=== PATIENT | male | born 1980 | race African-American/Black ===

== ENCOUNTER 2022-09-30 09:33 | Outpatient (REF) | payer BC, SELFPAY ==
[2022-09-30 10:25] LABS: Hematocrit 44.8 % (42.0-52.0); Hemoglobin 14.5 g/dl (14.0-18.0); Mean Corpuscular HGB Conc 32.4 g/dl (31.0-36.0); Mean Corpuscular Volume 80.3 fL (80.0-98.0); Mean Platelet Volume 10.4 fL (9.4-12.4); Platelet Count 350 X10*3/uL (160-400); Red Blood Count 5.58 X10*6/uL (4.60-5.80); White Blood Count 7.8 X10*3/uL (4.8-10.8)
[2022-09-30 10:52] LABS: Alanine Aminotransferase 69 U/L (0-40); Albumin Level 4.3 g/dL (3.5-5.0); Alkaline Phosphatase 100 U/L (39-117); Anion Gap 14 (12-20); Aspartate Amino Transferase 33 U/L (5-37); Bilirubin Total 1.1 mg/dL (0.0-1.0); Blood Urea Nitrogen 16 mg/dL (9-16); Calcium 9.8 mg/dL (8.4-10.2); Carbon Dioxide 26 mmol/L (22-29); Chloride 107 mmol/L (96-108); Cholesterol 272 mg/dL; Estimated Glomerular Filt Rate > 60; Glucose Fasting 108 mg/dL (60-99); HDL Cholesterol 43 mg/dL; LDL Cholesterol Calculated 170 mg/dl; Potassium 4.5 mmol/L (3.3-5.1); Sodium 142 mmol/L (135-145); Total Protein 7.2 g/dL (6.5-8.0); Triglycerides 296 mg/dL
[2022-09-30 10:56] LABS: Prostate Specific Antigen Scr 9.64 ng/mL (<0.05-4.0); TSH reflex Free T4 2.25 uIU/mL (0.32-4.0)
== END 2022-09-30 09:34 | disposition home or self-care (01) ==
LOC: HO.10HDL 09:33
PROVIDERS: Visit Provider Physician Assistant
DX: Z12.5 Encounter for screening for malignant neoplasm of prostate (principal); Z13.1 Encounter for screening for diabetes mellitus; E78.2 Mixed hyperlipidemia
CPT/HCPCS: 36415; 80053; 80061; 84153; 84443; 85027

== ENCOUNTER → 2022-11-03 13:59 | Outpatient (BNVA) | payer BC, SELFPAY | PROVIDERS: PCP Internal Medicine; Visit Provider Nurse Practitioner Family ==

== ENCOUNTER 2022-11-19 08:05 | Outpatient (REF) | payer BC, MEDICAID, SELFPAY ==
[2022-11-19 11:30] LABS: Prostate Specific Antigen 8.11 ng/mL (<0.05-4.0)
== END 2022-11-19 08:06 | disposition home or self-care (01) ==
LOC: HO.10HDL 08:05
PROVIDERS: Visit Provider Nurse Practitioner Family
DX: R97.20 Elevated prostate specific antigen [PSA] (principal); Z12.5 Encounter for screening for malignant neoplasm of prostate
CPT/HCPCS: 36415; 84153

== ENCOUNTER → 2022-11-24 13:22 | Outpatient (BNVA) | payer BC, SELFPAY | PROVIDERS: PCP Internal Medicine; Visit Provider Nurse Practitioner Family | DX: R97.20 Elevated prostate specific antigen [PSA] (principal) ==

== ENCOUNTER 2023-04-28 08:42 | Outpatient (AMB) | payer SELFPAY ==
[2023-04-28 08:36] VITALS: BP 130/78; PULSE 55; O2SAT 98; BMI 30.6
--- NOTE | 2023-04-28 08:36 | MHC.PC.OV ---
Vital Signs 04/28/23 08:36 Height 6 ft 2 in Weight 238 lb BMI 30.6 BP 130/78 Blood Pressure Location Lt brachial Position Sitting Pulse 55 Pulse Source Pulse Oximeter Pulse Oximetry (%) 98 Oxygen Delivery Method Room Air Intake Visit Reasons: Follow up on BP Allergies aspirin Allergy (Unknown, Verified 04/28/23 08:37) shortness of breath Sea food Allergy (Severe, Uncoded 04/28/23 08:37) swelling, sweating, trouble breathing Tobacco use date assessed: 09/22/22 Dental Screening Dental Screen Date: 04/28/23 Did you have a dental visit in the last 12 months?: Yes Did you have a dental problem in the last 6 months where you did not have access to dental care?: No Was dental information given to patient?: Patient has dentist HPI HPI Comments History of Present Illness Details This is a 42-year-old male with pure hypercholesterolemia, obesity, elevated PSA and elevated blood pressure without diagnosis of hypertension that comes today for follow-up for elevated blood pressure reading. Patient blood pressure at goal today below or equal to 130/80. Patient encouraged to follow low-salt diet. Patient also reports that he was previously started on atorvastatin 10 mg at bedtime for LDL of 170, states medication made him feel dizzy and very fatigued so he had discontinued the medication. Discussed starting patient on alternative statin however he would like to proceed with dietary modifications to see if he can lower his cholesterol on his own. [facility] Surgical History No pertinent past surgical history Family History Mother Diabetes Hypertension Arthritis Father Hypertension Diabetes Arthritis Pacemaker Additional heart attack (anterolateral wall) Family/Other Mental health disorder Substance use disorder Sister Tachycardia Social History Housing: House Alcohol intake: current Alcohol intake frequency: holidays/special occasions only Patient Tobacco Use Status: Former Tobacco user Quit Date: 2017 Tobacco use type: Cigarette e-Cigarette/Vaping Use: Never Used Second Hand Smoke Exposure: No service: No Current occupational status: employed Current occupation: [employer] Current occupational exposures/hazards: No Cognitive needs: No Hearing needs: No Vision needs: Yes Questionnaire PHQ-9 Over the last 2 weeks, how often have you been bothered by any of the following problems? 1. Little interest or pleasure in doing things: not at all 2. Feeling down, depressed, or hopeless: not at all 3. Trouble falling or staying asleep, or sleeping too much: not at all 4. Feeling tired or having little energy: not at all 5. Poor appetite or overeating: not at all 6. Feeling bad about yourself - or that you are a failure or have let yourself or your family down: not at all 7. Trouble concentrating on things, such as reading the newspaper or watching television: not at all 8. Moving or speaking so slowly that other people could have noticed. Or the opposite - being so fidgety or restless that you have been moving around a lot more than usual: not at all 9. Thoughts that you would be better off or of hurting yourself in some way: not at all Total score: 0 Depression Screening Interpretation: Negative Depression Screening Done: Yes 47151 - PHQ-9 Billing: Yes Source: Developed by Drs. Jaiden Brown, Doug Miller and colleagues, with an educational hugo from [employer]. Thrive Questionnaire Date Thrive assessed: 09/22/22 AUDIT C Alcohol Use Questionnaire (AUDIT-C) 1. How often do you have a drink containing alcohol?: Never Total Score: 0 KAYLAN-7 AMB Questionnaire KAYLAN-7 Date KAYLAN - 7 assessed: 09/22/22 Source: Developed by Drs. Jaiden Brown, Doug Miller and colleagues, with an educational hugo from [employer]. Review of Systems Const Denies chills, Denies fatigue, Denies fever(s) and Denies poor appetite Eyes Denies no additional complaints ENT Reports Normal hearing present Card Denies chest pain, Denies syncope, Denies rapid heart rate and Denies dyspnea Resp Denies cough and Denies dyspnea GI Denies change in stool character, Denies constipation, Denies diarrhea, Denies nausea and Denies vomiting Denies dysuria, Denies urinary frequency and Denies urinary urgency Neuro Reports Normal hearing present, Denies confusion and Denies syncope Psych Denies confusion Endo Denies fatigue Physical exam (Primary Care) Vital Signs: Last Vital Signs Pulse 55 04/28/23 08:36 BP 130/78 04/28/23 08:36 Pulse Ox 98 04/28/23 08:36 Oxygen Delivery Method Room Air 04/28/23 08:36 BMI result Body Mass Index 30.6 Tobacco/Smoking Status: Tobacco use Status Tobacco use date assessed 09/22/22 04/28/23 08:41 Patient Tobacco Use Status Former Tobacco user 04/28/23 08:41 Tobacco use type Cigarette 04/28/23 08:41 e-Cigarette/Vaping Use Never Used 04/28/23 08:41 PHQ-9: PHQ-9 Score PHQ-9: Total score 0 04/28/23 08:50 Depression Screening Interpretation: Negative Thrive Assessment: Date of Thrive Assessment Date Thrive assessed 09/22/22 04/28/23 08:41 Const General: No confusion Orientation/consciousness: No confusion HENMT Head: Yes normocephalic and Yes atraumatic Eyes Conjunctivae: conjunctivae normal Chest Chest palpation & inspection: normal inspection of the chest Resp Effort & Inspection: normal respiratory effort Auscultation: clear to auscultation bilaterally, no crackles, no rhonchi and no wheezes Cardio Rate: regular rate Rhythm: regular rhythm Heart sounds: S1 normal heart sound present and S2 normal heart sound present GI Inspection: Yes normal to inspection Neuro General: No confusion Cranial nerves: Yes Normal hearing present Extrem General: No edema Assessment and Plan Assessment & Plan (1) HLD (hyperlipidemia): Code(s): E78.5 - Hyperlipidemia, unspecified Qualifiers: Hyperlipidemia type: mixed hyperlipidemia Qualified Code(s): E78.2 - Mixed hyperlipidemia Plan: LDL 170 Avoid fried foods, chicken skin, eggs, butter,margarine, pastries and red meat. patient would like to proceed with dietary modifications prior to initiating an alternative statin. Fasting lipid panel ordered. Plan Follow-up in 3 months with PCP. Orders: Orders Comprehensive [place]. Panel Fast Today E78.5 - Hyperlipidemia, unspecified Lipid Panel Today E78.5 - Hyperlipidemia, unspecified Coding Level of Care Code Est Pt Level 3 (82347) Diagnoses Mixed hyperlipidemia E78.2 Hyperlipidemia type: mixed hyperlipidemia
== END 2023-04-28 09:01 | disposition home or self-care (01) ==
PROVIDERS: PCP Internal Medicine; Visit Provider Nurse Practitioner Family
DX: E78.2 Mixed hyperlipidemia (principal)
CPT/HCPCS: 99213

== ENCOUNTER 2023-08-08 08:18 | Outpatient (REF) | payer MEDICAID, SELFPAY ==
[2023-08-08 11:19] LABS: Alanine Aminotransferase 102 U/L (0-40); Albumin Level 4.2 g/dL (3.5-5.0); Alkaline Phosphatase 82 U/L (39-117); Anion Gap 14 (12-20); Aspartate Amino Transferase 43 U/L (5-37); Bilirubin Total 0.4 mg/dL (0.0-1.0); Blood Urea Nitrogen 16 mg/dL (9-16); Calcium 9.3 mg/dL (8.4-10.2); Carbon Dioxide 24 mmol/L (22-29); Chloride 108 mmol/L (96-108); Cholesterol 238 mg/dL (<200); Estimated Glomerular Filt Rate > 60; Glucose Fasting 115 mg/dL (60-99); HDL Cholesterol 40 mg/dL (>40); LDL Cholesterol Calculated 125 mg/dL (<100); Potassium 3.7 mmol/L (3.3-5.1); Sodium 142 mmol/L (135-145); Total Protein 7.1 g/dL (6.5-8.0); Triglycerides 366 mg/dL (<150)
[2023-08-13 01:13] LABS: Lipoprotein A 106 nmol/L (<75)
[2023-08-17 07:38] LABS: Lipoprotein Asso Phospholip A2 141 (<124)
[2023-08-26 13:03] LABS: Apolipoprotein A1 175 mg/dL (>=115)
== END 2023-08-08 08:19 | disposition home or self-care (01) ==
LOC: HO.10HDL 08:18
PROVIDERS: Visit Provider Internal Medicine
DX: E78.00 Pure hypercholesterolemia, unspecified (principal); E78.5 Hyperlipidemia, unspecified
CPT/HCPCS: 36415; 80053; 80061; 82172; 83695; 83698

== ENCOUNTER 2023-08-09 15:20 | Outpatient (AMB) | payer BC, MEDICAID, SELFPAY ==
--- NOTE | 2023-08-09 15:30 | A.OFFPC_ITS ---
Vital Signs 08/09/23 15:31 08/09/23 18:05 Height 6 ft 2 in Weight 249 lb BMI 32.0 BP 140/90 H 140/90 H Blood Pressure Location Lt brachial Lt brachial Position Sitting Sitting Intake Visit Reasons: Hyperlipidemia, hx elevated B/p Intake Note: Patient here for a follow up hyperlipidemia, elevated bp [employer] Supervisor Required: No Accompanied by: Self / Same As Patient Allergies aspirin Allergy (Unknown, Verified 08/09/23 15:43) shortness of breath Sea food Allergy (Severe, Uncoded 08/09/23 15:43) swelling, sweating, trouble breathing Medication List - Last Reconciled 08/09/23 by Roro Hernández MD No Known Home Meds Tobacco use date assessed: 08/09/23 Dental Screening Dental Screen Date: 08/09/23 Did you have a dental visit in the last 12 months?: Yes Did you have a dental problem in the last 6 months where you did not have access to dental care?: No Was dental information given to patient?: Patient has dentist HPI HPI Comments History of Present Illness Details This is a 43-year-old male with pure hypercholesterolemia, elevated blood pressure without diagnosis of hypertension, impaired glucose tolerance and transaminitis that comes today for follow-up on his labs. Cholesterol elevated but his Reading risk score is 5.3% risk of having a heart attack or stroke in the next 10 years. Blood pressure is elevated and will be recheck in 3 weeks by nurse navigator. He denies any chest pain or shortness of breath. Fasting blood glucose is also elevated but he denies any polyuria, polydipsia or unintentional weight loss. He does have elevated liver enzymes and denies any jaundice. Ultrasound of the liver was ordered. [facility] Surgical History No pertinent past surgical history Family History Mother Diabetes Hypertension Arthritis Father Hypertension Diabetes Arthritis Pacemaker Additional heart attack (anterolateral wall) Family/Other Mental health disorder Substance use disorder Sister Tachycardia Social History Housing: House Alcohol intake: current Alcohol intake frequency: holidays/special occasions only Patient Tobacco Use Status: Former Tobacco user Quit Date: 2017 Tobacco use type: Cigarette e-Cigarette/Vaping Use: Never Used Second Hand Smoke Exposure: No service: No Current occupational status: employed Current occupation: [employer] Current occupational exposures/hazards: No Cognitive needs: No Hearing needs: No Vision needs: Yes Questionnaire PHQ-9 Over the last 2 weeks, how often have you been bothered by any of the following problems? 1. Little interest or pleasure in doing things: not at all 2. Feeling down, depressed, or hopeless: not at all 3. Trouble falling or staying asleep, or sleeping too much: not at all 4. Feeling tired or having little energy: not at all 5. Poor appetite or overeating: not at all 6. Feeling bad about yourself - or that you are a failure or have let yourself or your family down: not at all 7. Trouble concentrating on things, such as reading the newspaper or watching television: not at all 8. Moving or speaking so slowly that other people could have noticed. Or the opposite - being so fidgety or restless that you have been moving around a lot more than usual: not at all 9. Thoughts that you would be better off or of hurting yourself in some way: not at all Total score: 0 Depression Screening Interpretation: Negative Depression Screening Done: Yes 55141 - PHQ-9 Billing: Yes Source: Developed by Drs. Jaiden Brown, Fely Lovell, Doug Smith and colleagues, with an educational hugo from [employer]. Thrive Questionnaire Date Thrive assessed: 08/09/23 I am a: Patient What is your living situation today?: I have a steady place to live Within the past 12 months, did the food you bought not last and you didn't have the money to get more?: Never true Within the past 12 months, did you worry whether your food would run out before you got money to buy more?: Never true Do you have trouble paying for medicines?: No Do you have trouble getting transportation to medical appointments?: No Do you have trouble paying your heating and electricity bill?: No Do you have trouble taking care of your child, family member or friend?: No Do you have trouble with day-to-day activities such as bathing, preparing meals, shopping, managing finances, etc.?: No Are you currently unemployed and looking for a job?: No Are you interested in more education?: No Please select the resources that you would like help with: None Currently or been in a relationship where the following occur: no concerns reported THRIVE Score: 0 AUDIT C Alcohol Use Questionnaire (AUDIT-C) 1. How often do you have a drink containing alcohol?: Never Total Score: 0 KAYLAN-7 AMB Questionnaire KAYLAN-7 Date KAYLAN - 7 assessed: 08/09/23 Feeling nervous, anxious, or on edge: 0 = Not at all Not being able to stop or control worryin = Not at all Worrying too much about different things: 0 = Not at all Trouble relaxin = Not at all Being so restless that it is hard to sit still: 0 = Not at all Becoming easily annoyed or irritable: 0 = Not at all Feeling afraid as if something awful might happen: 0 = Not at all Total KAYLAN-7 score (0-4 normal; 5-9 mild; 10-14 moderate; 15-21 severe): 0 Source: Developed by Drs. Jaiden Brown, Fely Lovell, Doug Smith and colleagues, with an educational hugo from [employer]. KAYLAN-7 Assessment Billing KAYLAN-7 Assessment Tool: KAYLAN-7 Assessment 20045 Review of Systems Const All systems reviewed & are unremarkable except as noted in HPI and below Eyes Reports no additional complaints, Denies change in vision and Denies other visual disturbances Card Denies chest pain at rest, Denies chest pain with activity, Denies edema, Denies irregular heart rhythm, Denies claudication, Denies dyspnea, Denies dyspnea on exertion, Denies orthopnea, Denies paroxysmal nocturnal dyspnea and Denies slow heart rate Resp Denies cough, Denies dyspnea and Denies dyspnea on exertion GI Denies abdominal pain, Denies change in bowel habits, Denies excessive flatus, Denies nausea and Denies vomiting Denies urinary hesitancy, Denies urinary incontinence and Denies urinary urgency Musc Denies abnormal gait, Denies atrophy, Denies deformity and Denies limited range of motion Skin/Breast Denies bleeding lesions, Denies changing lesions and Denies rash Neuro Denies abnormal gait, Denies behavioral changes and Denies lack of coordination Psych Denies behavioral changes Physical exam (Primary Care) Vital Signs: Last Vital Signs BP 140/90 H 08/09/23 15:31 BMI result Body Mass Index 32.0 Tobacco/Smoking Status: Tobacco use Status Tobacco use date assessed 08/09/23 08/09/23 15:38 Patient Tobacco Use Status Former Tobacco user 08/09/23 15:38 Tobacco use type Cigarette 08/09/23 15:38 e-Cigarette/Vaping Use Never Used 08/09/23 15:38 PHQ-9: PHQ-9 Score PHQ-9: Total score 0 08/09/23 15:50 Depression Screening Interpretation: Negative Thrive Assessment: Date of Thrive Assessment Date Thrive assessed 08/09/23 08/09/23 15:38 Currently or been in a relationship where the following occur: no concerns reported Eyes General: appearance normal, both eyes and all related structures Eyelids: Yes eyelids normal Conjunctivae: conjunctivae normal Neck Neck: Yes normal visual inspection and Yes supple Resp Effort & Inspection: normal respiratory effort Auscultation: clear to auscultation bilaterally Cardio Jugular venous distension: no JVD Rate: regular rate Rhythm: regular rhythm Heart sounds: S1 normal heart sound present and S2 normal heart sound present Extrem General: Yes full ROM Assessment and Plan Assessment & Plan (1) Elevated blood pressure reading without diagnosis of hypertension: Code(s): R03.0 - Elevated blood-pressure reading, without diagnosis of hypertension Plan: Recheck blood pressure with nurse navigator in 3 weeks. Advised low-salt diet. (2) Pure hypercholesterolemia: Code(s): E78.00 - Pure hypercholesterolemia, unspecified Plan: Advise low-cholesterol diet. (3) Impaired glucose tolerance: Code(s): R73.02 - Impaired glucose tolerance (oral) Plan: Repeat fasting blood glucose in 4 months. (4) Transaminitis: Code(s): R74.01 - Elevation of levels of liver transaminase levels Plan: Ultrasound of the liver ordered. Orders: Orders Lipid Panel 4 Months E78.5 - Hyperlipidemia, unspecified PSA,Total (Free>4and<10) 4 Months Z12.5 - Encounter for screening for malignant neoplasm of prostate Comprehensive [place]. Panel Fast 4 Months R73.02 - Impaired glucose tolerance (oral) US abdomen complete Today R74.01 - Elevation of levels of liver transaminase levels Referrals Open Access Screening Colonoscopy Referral Z12.11 - Encounter for screening for malignant neoplasm of colon Urology Referral R97.20 - Elevated prostate specific antigen [PSA] Coding Level of Care Code Est Pt Level 4 (16335) Diagnoses Elevated blood pressure reading without diagnosis of hypertension R03.0 Pure hypercholesterolemia E78.00 Impaired glucose tolerance R73.02 Transaminitis R74.01 Additional Codes KAYLAN-7 Assessment Billing - KAYLAN-7 Assessment Tool: KAYLAN-7 Assessment 24654 ([id number]) Time Spent (min) 24
[2023-08-09 15:31] VITALS: BP 140/90; BMI 32.0
[2023-08-09 18:05] VITALS: BP 140/90
== END 2023-08-09 15:53 | disposition home or self-care (01) ==
PROVIDERS: PCP Internal Medicine; Visit Provider Internal Medicine
DX: R03.0 Elevated blood-pressure reading, without diagnosis of hypertension (principal); E78.00 Pure hypercholesterolemia, unspecified; R73.02 Impaired glucose tolerance (oral); R74.01 Elevation of levels of liver transaminase levels
CPT/HCPCS: 99214

== ENCOUNTER 2023-09-01 09:16 | Outpatient (REF) | payer BC, MEDICAID, SELFPAY ==
--- NOTE | ~2023-09-01 | US_ITS ---
EXAMINATION: US ABDOMEN COMPLETE CLINICAL INFORMATION: Elevation of levels of liver transaminase levels. COMPARISON: None available. TECHNIQUE: Real-time imaging of the abdominal viscera. FINDINGS: PANCREAS: Normal. ABDOMINAL AORTA: The proximal, mid, and distal segments are normal in caliber. INFERIOR VENA CAVA: Visualized portions are normal. LIVER: The liver is normal in size. The liver contour is normal. Markedly increased hepatic echogenicity with areas of focal fatty sparing suggesting hepatic steatosis. No focal hepatic lesion. There is no intrahepatic biliary duct dilatation seen. GALLBLADDER: Normal. The gallbladder is physiologically distended without evidence of stones, sludge, polyps, wall thickening or pericholecystic fluid. COMMON BILE DUCT: Normal in caliber measuring 0.3 cm in diameter. RIGHT KIDNEY: Normal. No hydronephrosis. No renal calculi or focal parenchymal lesions. The kidney measures 10.8 cm in maximum dimension. LEFT KIDNEY: Normal. No hydronephrosis. No renal calculi or focal parenchymal lesions. The kidney measures 11.5 cm in maximum dimension. SPLEEN: Normal. The spleen measures 11.5 cm in maximum dimension. FREE FLUID: None. US/US abdomen complete IMPRESSION: Markedly increased hepatic echogenicity with areas of focal fatty sparing suggesting hepatic steatosis.
== END 2023-09-01 09:17 | disposition home or self-care (01) ==
LOC: HO.US 09:16
PROVIDERS: PCP Internal Medicine; Visit Provider Internal Medicine
DX: R74.01 Elevation of levels of liver transaminase levels (principal)
CPT/HCPCS: 76700

== ENCOUNTER 2023-09-27 13:01 | Outpatient (AMB) | payer BC, MEDICAID, SELFPAY ==
--- NOTE | 2023-09-27 13:02 | A.OFFVIS_ITS ---
Intake Intake Visit Reasons: Elevated PSA Intake Note: NEW Patient presents today to established treatment for Elevated PSA: Meds- None Allergies to Antibiotic- No Known Allergies Blood Thinner- None Post Void Residual: Unable to void 44 mL Corrosion Control Engineer Required: No Accompanied by: Self / Same As Patient Allergies aspirin Allergy (Unknown, Verified 09/27/23 13:30) shortness of breath Sea food Allergy (Severe, Uncoded 09/27/23 13:30) swelling, sweating, trouble breathing Medication List - Last Reconciled 09/27/23 by JAGDEEP Sky- levofloxacin 500 mg PO daily 3 days HPI HPI Comments History of Present Illness Details Dustin is a pleasant 43-year-old male patient of Dr. Jovan Hernández. He presents to the office today for a follow up. Of note, patient was seen approximately 1 year ago for an elevated PSA at which time recommendations were made for prostate biopsy. However, in discussion with the patient today he reports having lost his insurance and was unable to undergo prostate procedure. He reports he has since straightened out his insurance and would like to have prostate biopsy. In review of patient's chart PSAs are as follows. 09/23--9.6 11/23--8.1 When asked patient reports to be doing and feeling well. He denies any urinary issues or concerns at this time. He reports to be happy with his current voiding parameters. When asked he denies urinary urgency, urinary frequency, incontinence, nocturia, hematuria, dysuria, foul smelling urine, changes to urinary stream, flank pain, fever, and or chills. Unable to obtain urine for urinalysis today however, PVR 44ml's. When asked patient denies any known family history of prostate cancer. Discussed at length potential causes for elevated PSA. REMINGTON offered however deferred. He otherwise offers no other issues or concerns at this time. [facility] History No pertinent past surgical history Family History Mother Diabetes Hypertension Arthritis Father Hypertension Diabetes Arthritis Pacemaker Additional heart attack (anterolateral wall) Family/Other Mental health disorder Substance use disorder Sister Tachycardia Social History Housing: House Alcohol intake: current Alcohol intake frequency: holidays/special occasions only Patient Tobacco Use Status: Former Tobacco user Quit Date: 2017 Tobacco use type: Cigarette e-Cigarette/Vaping Use: Never Used Second Hand Smoke Exposure: No service: No Current occupational status: employed Current occupation: [employer] Current occupational exposures/hazards: No Cognitive needs: No Hearing needs: No Vision needs: Yes Review of Systems Const All systems reviewed & are unremarkable except as noted in HPI and below Reports no additional complaints Eyes Reports no additional complaints ENT Reports no additional complaints Card Reports no additional complaints and Denies rapid heart rate Resp Reports no additional complaints GI Reports no additional complaints Reports as per HPI Musc Reports no additional complaints Neuro Reports no additional complaints Psych Reports no additional complaints Endo Reports no additional complaints Kayode/Lymph Reports no additional complaints Aller/Immun Reports no additional complaints Physical Exam Const General: cooperative, healthy appearing, comfortable, no acute distress, well d eveloped, alert and awake Orientation/consciousness: patient oriented x3 Limitations: no limitations HEENT Head: Yes normal to inspection, Yes normocephalic and Yes atraumatic Ears: hearing grossly normal bilaterally Eyes General: appearance normal, both eyes and all related structures Neck Neck: Yes normal visual inspection and Yes trachea midline Chest Chest palpation & inspection: normal inspection of the chest Resp Effort & Inspection: normal respiratory effort and able to speak in complete sentences Cardio Rate: regular rate GI Inspection: Yes normal to inspection General: Yes no CVA tenderness Back/Spine/Pelvis Back: no CVA tenderness Skin General skin exam: no rashes or lesions noted Neuro General: patient oriented x3 Extrem General: Yes normal to inspection Psych Appearance: grossly normal and well kempt Mental Status: mental status grossly normal Speech and movement: Normal speech and movement present and Clear speech present Affect: normal affect Attitude: cooperative Thought process: Normal thought process present Thought content: Normal thought content present Insight: Good insight present (Psych) Judgement: Good judgement present (Psych) Assessment & Plan Assessment & Plan (1) Elevated PSA: Code(s): R97.20 - Elevated prostate specific antigen [PSA] Plan: Plan Risks and benefits regarding trans rectal ultrasound with prostate biopsy were discussed.? Options of continued surveillance, no treatment and biopsy were offered. The risks include but are not limited to, urinary tract infection, sepsis, difficulty urinating, bleeding into the rectum or bladder that requires intervention and transfusion,and failure to diagnose prostate cancer. The patient understands the options and the risks involved. They wish to proceed. Printed information was provided to ensure he remains off anticoagulation for the appropriate length of time. He may require cardiology or PCP clearance.? An antibiotic will be administered prior to, and following the procedure Plan Unable to obtain urine for urinalysis today however PVR 44 mL. Patient currently denies any bothersome urinary issues or concerns. REMINGTON offered however deferred. Discussed at length potential causes for elevated PSA. Will obtain redraw of PSA Discussed antibiotic day before, day of, and day after procedure; prescription provided. Will schedule for prostate biopsy as discussed Follow-up status post doctor's orders; or sooner with any issues, concerns, and or questions. Orders: Orders PSA,Total (Free>4and<10) Today R97.20 - Elevated prostate specific antigen [PSA] Medications: New levofloxacin take 1 tablet day before procedure, 1 tablet day of procedure and 1 tablet day after procedure 500 mg PO daily 3 days 3 tabs 0RF Patient Instructions: The patient had an opportunity to ask questions regarding the treatment plan. All questions were answered. Physical exam, labs, and imaging were discussed and reviewed in detail. As well as risks, benefits, and discussion of treatment choices. No major barriers to understanding were identified. The patient expressed understanding and agreement with the above treatment plan. The patient was made aware they should contact our office by phone for worsening of their current condition, the appearance of new symptoms, or with any questions or concerns. Compliance is encouraged with any medications and follow up testing that is ordered. It is a privilege to be allowed the opportunity to participate in? your urological care.? Again, if you have any questions or concerns If you have any questions or concerns please do not hesitate to contact me. The office is [phone]. This note is constructed using voice recognition software. While every effort has been made to ensure accuracy coach cleaner errors may have been included. Yours sincerely, Codi Méndez, JEWEL BEARING BROACHER-BC Coding Level of Care Code Est Pt Level 4 (66799) Diagnoses Elevated PSA R97.20
== END 2023-09-27 13:31 | disposition home or self-care (01) ==
PROVIDERS: PCP Internal Medicine; Visit Provider Nurse Practitioner Family
DX: R97.20 Elevated prostate specific antigen [PSA] (principal)
CPT/HCPCS: 99214

== ENCOUNTER → 2023-09-27 13:01 | Outpatient (BNVA) | payer BC, MEDICAID, SELFPAY | PROVIDERS: PCP Internal Medicine; Visit Provider Nurse Practitioner Family ==

== ENCOUNTER 2023-10-21 07:33 | Outpatient (REF) | payer BC, MEDICAID, SELFPAY ==
[2023-10-21 11:22] LABS: PSA,Total (Free>4and<10) 7.35 ng/mL (0.00-4.00)
[2023-10-24 10:54] LABS: Free Prostate Spec Ag 0.3 ng/mL; Percent Free Prostate Spec Ag 5 % (calc) (>25); Prostate Specific Ag Total 6.5 ng/mL (< OR = 4.0)
== END 2023-10-21 07:34 | disposition home or self-care (01) ==
LOC: HO.10HDL 07:33
PROVIDERS: Visit Provider Nurse Practitioner Family
DX: Z12.5 Encounter for screening for malignant neoplasm of prostate (principal); R97.20 Elevated prostate specific antigen [PSA]
CPT/HCPCS: 36415; 84153; 84154

== ENCOUNTER 2023-10-25 11:15 | Day surgery (SDC) | payer BC, MEDICAID, SELFPAY ==
--- NOTE | 2023-10-24 10:45 | HO.ANESPROP2 ---
HPI - Anesthesia Eval Consult details Narrative: 43yo M for Prostate Needle Biopsy PMFSH Active Problems Active Problems: All Active Problems Impaired glucose tolerance (Acute) Transaminitis (Acute) Elevated blood pressure reading without diagnosis of hypertension (Acute) Pure hypercholesterolemia (Acute) Prostatitis (Acute) Urinary frequency (Acute) Elevated PSA (Acute) Obese (Acute) Colon cancer screening (Acute) HLD (hyperlipidemia) (Acute) Screening for hypothyroidism (Acute) Screening for diabetes mellitus (DM) (Acute) Annual physical exam (Acute) Past Medical History Medical History (Updated 10/24/23 @ 10:45 by Vanda Stern NP) HLD (hyperlipidemia) Family History Family History Mother Diabetes Hypertension Arthritis Father Hypertension Diabetes Arthritis Pacemaker Additional heart attack (anterolateral wall) Family/Other Mental health disorder Substance use disorder Sister Tachycardia Surgical History Surgical History No pertinent past surgical history Social History Social History Housing: House Alcohol intake: current Alcohol intake frequency: holidays/special occasions only Patient Tobacco Use Status: Former Tobacco user Quit Date: 2017 Tobacco use type: Cigarette e-Cigarette/Vaping Use: Never Used Second Hand Smoke Exposure: No service: No Current occupational status: employed Current occupation: [employer] Current occupational exposures/hazards: No Cognitive needs: No Hearing needs: No Vision needs: Yes Meds Allergies Allergy/AdvReac Type Severity Reaction Status Date / Time aspirin Allergy Unknown shortness Verified 09/27/23 13:30 of breath Sea food Allergy Severe swelling, Uncoded 09/27/23 13:30 sweating, trouble breathing Assessment and Plan Assessment Anesthesia Assessment: Chart Reviewed
--- NOTE | 2023-10-25 14:58 | MHC.SHP ---
Pre-Procedural Eval Section A - 24 Hr Update-Section A only Date of Service: 10/25/23 The patient is an INPATIENT: No The patient has been examined within 24 hours of the surgical procedure. The History & Physical has been completed within 30 days and I have reviewed it.: Yes Section B - Complete if H&P > 30 days Chief Complaint: Elevated prostate specific antigen [PSA] Allergies: Allergies Allergy/AdvReac Type Severity Reaction Status Date / Time aspirin Allergy Severe Anaphylaxis Verified 10/25/23 14:03 Sea food Allergy Severe swelling, Uncoded 09/27/23 13:30 sweating, trouble breathing Plan Diagnosis/Plan: Unchanged I have reviewed the history and physical and performed a pertinent physical examination on my patient. No changes have occurred unless specified. Transrectal ultrasound guided prostate biopsy. Time Spent With Patient Time: Total time managing care of this patient today ____ minutes.
[2023-10-25 15:09] VITALS: BMI 30.8
[2023-10-25] MEDS: Sulfamethox/Trimeth 800/160 TABLET 1 TAB PO (15:12)
--- NOTE | 2023-10-25 17:00 | W.PM.OPN ---
Operative Note Operative Note Date of Service: 10/25/23 Narrative: PreOperative Diagnosis:? ? Elevated PSA Post Operative Diagnosis:??Elevated PSA Procedure:?1. Transrectal ultrasound guided biopsy of the prostate 12 core 2. Transrectal ultrasound measurement of prostate 3. Transrectal ultrasound guided pudendal nerve block Surgeon:?Dr Triston Evangelista Anesthesia:? Local, 1 % Lidocaine Indications for procedure: Elevated PSA Procedure: Preoperative antibiotics confirmed. After informed consent was verified the patient was placed on the procedure table in left lateral position. Patient identity confirmed. Safety pause time-out performed. Digital rectal exam performed to dilate rectal sphincter, iodine mixed with lubricant jelly 30 cc placed per rectum. Ultrasound probe was placed per rectum. The prostate was visualized. The prostate was measured width 5.37 cm, height 2.16 cm, length 4.14 cm with a volume of 25.2 mL. An ultrasound guided pudendal nerve block was performed using 13 cc of 1% lidocaine. A 12 core biopsy was performed from the left base, left mid, left apex and right base, mid, apex 2 biopsies from each section. The ultrasound probe was removed and digital palpation of the prostate for 1-2 minutes for hemostasis was performed. The patient tolerated the procedure well. Complications: None
[2023-10-25 17:05] VITALS: BP 159/87; PULSE 56; RESP 18; TEMP 37.2; O2SAT 99
== END 2023-10-25 17:14 | disposition home or self-care (01) ==
PROVIDERS: PCP Internal Medicine; Visit Provider Urology
PROC: (CPT 55700; principal; 2023-10-25 14:50)
DX: R97.20 Elevated prostate specific antigen [PSA] (principal); Z79.899 Other long term (current) drug therapy; Z88.8 Allergy status to other drugs, medicaments and biological substances; Z87.891 Personal history of nicotine dependence
CPT/HCPCS: 55700; 76942; 88305

== ENCOUNTER → 2023-10-25 11:15 | Outpatient (BNV) | payer BC, MEDICAID, SELFPAY | PROVIDERS: PCP Internal Medicine; Visit Provider Urology | DX: R97.20 Elevated prostate specific antigen [PSA] (principal) | CPT/HCPCS: 55700; 76942 ==

== ENCOUNTER 2023-11-21 08:19 | Outpatient (AMB) | payer BC, MEDICAID, SELFPAY ==
--- NOTE | 2023-11-21 08:36 | A.OFFVIS_ITS ---
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 He was initially evaluated by the nurse practitioner on 09/27/2023. PSA 10/21/2023--7.35 ng/mL. He is status post prostate biopsy. I reviewed pathology results benign prostate tissue. The patient denies obstructive urinary symptoms. He states that since the prostate biopsy has had hesitancy at the end of the stream if this persists and want him to give us. Discussed that it is important to continue to monitor with PSA screening. Review of chart: 09/27/2023-- Dustin is a pleasant 43-year-old male patient of Dr. Jovan Hernández. He presents to the office today for a follow up. Of note, patient was seen approximately 1 year ago for an elevated PSA at which time recommendations were made for prostate biopsy. However, in discussion with the patient today he reports having lost his insurance and was unable to undergo prostate procedure. He reports he has since straightened out his insurance and would like to have prostate biopsy. When asked patient reports to be doing and feeling well. He denies any urinary issues or concerns at this time. He reports to be happy with his current voiding parameters. When asked he denies urinary urgency, urinary frequency, incontinence, nocturia, hematuria, dysuria, foul smelling urine, changes to urinary stream, flank pain, fever, and or chills. Unable to obtain u rine for urinalysis today however, PVR 44ml's. When asked patient denies any known family history of prostate cancer. Discussed at length potential causes for elevated PSA. REMINGTON offered however deferred. He otherwise offers no other issues or concerns at this time. In review of patient's chart PSAs are as follows. 09/23--9.6 11/23--8.1 10/21/2023--7.35 PFSH Medical History HLD (hyperlipidemia) Surgical History No pertinent past surgical history Family History Mother Diabetes Hypertension Arthritis Father Hypertension Diabetes Arthritis Pacemaker Additional heart attack (anterolateral wall) Family/Other Mental health disorder Substance use disorder Sister Tachycardia Social History Housing: House Alcohol intake: current Alcohol intake frequency: holidays/special occasions only Patient Tobacco Use Status: Former Tobacco user Quit Date: 2017 Tobacco use type: Cigarette e-Cigarette/Vaping Use: Never Used Second Hand Smoke Exposure: No service: No Current occupational status: employed Current occupation: [employer] Current occupational exposures/hazards: No Cognitive needs: No Hearing needs: No Vision needs: Yes Review of Systems Const All systems reviewed & are unremarkable except as noted in HPI and below Reports no additional complaints Eyes Reports no additional complaints ENT Reports no additional complaints Card Reports no additional complaints Resp Reports no additional complaints GI Reports no additional complaints Reports as per HPI Musc Reports no additional complaints Skin/Breast Reports system reviewed and no additional complaints, except as documented Neuro Reports no additional complaints Psych Reports no additional complaints Endo Reports no additional complaints Kayode/Lymph Reports no additional complaints Aller/Immun Reports no additional complaints Results Reviewed Results Reviewed: Collected: 10/25/23 Location: [facility] Received: 10/26/23 Diagnosis Prostate, needle core biopsies: A. Left base lateral: Benign prostatic tissue. B. Left base medial: Benign prostatic tissue. C. Left mid lateral: Benign prostatic tissue. D. Left mid medial: Benign prostatic tissue. E. Left apex lateral: Benign prostatic tissue. F. Left apex medial: Benign prostatic tissue. G. Right base lateral: Benign prostatic tissue. H. Right base medial: Benign prostatic tissue. I. Right mid lateral: Benign prostatic tissue. J. Right mid medial: Benign prostatic tissue. K. Right apex lateral: Benign prostatic tissue. L. Right apex medial: Benign prostatic tissue. Clinical History Elevated prostate specific antigen (PSA) Assessment & Plan Assessment & Plan (1) Elevated PSA: Code(s): R97.20 - Elevated prostate specific antigen [PSA] Category: Medical (2) Enlarged prostate: Code(s): N40.0 - Benign prostatic hyperplasia without lower urinary tract symptoms Category: Medical Plan Monitor PSA. Follow-up in 9 moist PSA prior. Orders: Orders PSA,Total (Free>4and<10) Today R97.20 - Elevated prostate specific antigen [PSA] Patient Instructions: The patient had an opportunity to ask questions regarding treatment plan. The patient expressed understanding and agreement with the above treatment plan. The patient is aware they should contact our office by phone for worsening of their current condition or the appearance of new symptoms. Compliance is encouraged with any medications and followup testing that is ordered. It is a privilege to be allowed the opportunity to participate in the urologic care of your patient. If you have any questions or concerns regarding treatment for the above conditions please do not hesitate to contact me. The office telephone contact is [phone]. This note is constructed in part using voice recognition software. While every effort has been made to ensure accuracy production welding supervisor errors may have been included. Yours sincerely, Triston Evangelista MD Coding Level of Care Code Est Pt Level 4 (30851) Diagnoses Elevated PSA R97.20 Enlarged prostate N40.0
== END 2023-11-21 09:37 | disposition home or self-care (01) ==
PROVIDERS: PCP Internal Medicine; Visit Provider Urology
DX: R97.20 Elevated prostate specific antigen [PSA] (principal); N40.0 Benign prostatic hyperplasia without lower urinary tract symptoms
CPT/HCPCS: 99214

== ENCOUNTER → 2023-11-21 08:19 | Outpatient (BNVA) | payer BC, MEDICAID, SELFPAY | PROVIDERS: PCP Internal Medicine; Visit Provider Urology ==

== ENCOUNTER 2023-12-14 08:14 | Outpatient (REF) | payer BC, SELFPAY ==
[2023-12-14 10:56] LABS: Alanine Aminotransferase 55 U/L (0-40); Albumin Level 4.3 g/dL (3.5-5.0); Alkaline Phosphatase 85 U/L (39-117); Anion Gap 13 (12-20); Aspartate Amino Transferase 25 U/L (5-37); Bilirubin Total 0.8 mg/dL (0.0-1.0); Blood Urea Nitrogen 15 mg/dL (9-16); Calcium 9.6 mg/dL (8.4-10.2); Carbon Dioxide 25 mmol/L (22-29); Chloride 107 mmol/L (96-108); Cholesterol 218 mg/dL (<200); Estimated Glomerular Filt Rate > 60; Glucose Fasting 103 mg/dL (60-99); HDL Cholesterol 41 mg/dL (>40); LDL Cholesterol Calculated 133 mg/dL (<100); Potassium 3.9 mmol/L (3.3-5.1); Sodium 141 mmol/L (135-145); Total Protein 7.2 g/dL (6.5-8.0); Triglycerides 222 mg/dL (<150)
[2023-12-14 11:22] LABS: PSA,Total (Free>4and<10) 9.11 ng/mL (0.00-4.00)
[2023-12-15 12:33] LABS: Free Prostate Spec Ag 0.5 ng/mL; Percent Free Prostate Spec Ag 5 % (calc) (>25); Prostate Specific Ag Total 9.6 ng/mL (< OR = 4.0)
== END 2023-12-14 08:15 | disposition home or self-care (01) ==
LOC: HO.10HDL 08:14
PROVIDERS: Visit Provider Internal Medicine
DX: R73.02 Impaired glucose tolerance (oral) (principal); E78.5 Hyperlipidemia, unspecified; Z12.5 Encounter for screening for malignant neoplasm of prostate
CPT/HCPCS: 36415; 80053; 80061; 84153; 84154

== ENCOUNTER 2023-12-15 13:33 | Outpatient (AMB) | payer BC, SELFPAY ==
--- NOTE | 2023-12-15 13:36 | A.OFFPC_ITS ---
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 Has elevated PSA followed by Urology. Will have colonoscopy soon. No chest pain or shortness on breath. Complains of bilateral hand pain and weakness that has been present for few months. Will order x-ray and start occupational therapy. Labs were discussed and has elevated cholesterol and dietary changes were advised. [facility] Medical History (Updated 12/15/23 @ 14:13 by Roro Hernández MD) HLD (hyperlipidemia) Surgical History No pertinent past surgical history Family History Mother Diabetes Hypertension Arthritis Father Hypertension Diabetes Arthritis Pacemaker Additional heart attack (anterolateral wall) Family/Other Mental health disorder Substance use disorder Sister Tachycardia Social History (Updated 12/15/23 @ 14:07 by Roro Hernández MD) Housing: House Alcohol intake: former Patient Tobacco Use Status: Former Tobacco user Tobacco use type: Cigarette e-Cigarette/Vaping Use: Never Used Second Hand Smoke Exposure: No service: No Current occupational status: employed Current occupation: [employer] Current occupational exposures/hazards: No Cognitive needs: No Hearing needs: No Vision needs: Yes Questionnaire Thrive Questionnaire Date Thrive assessed: 08/09/23 KAYLAN-7 AMB Questionnaire KAYLAN-7 Date KAYLAN - 7 assessed: 08/09/23 Source: Developed by Drs. Jaiden Brown, Fely Lovell, Doug Smith and colleagues, with an educational hugo from [email or web address]. Review of Systems Const All systems reviewed & are unremarkable except as noted in HPI and below Card Denies chest pain at rest, Denies chest pain with activity, Denies edema, Denies irregular heart rhythm, Denies claudication, Denies dyspnea, Denies dyspnea on exertion, Denies orthopnea, Denies paroxysmal nocturnal dyspnea and Denies slow heart rate Resp Denies cough, Denies dyspnea and Denies dyspnea on exertion GI Denies abdominal pain, Denies change in bowel habits, Denies excessive flatus, Denies nausea and Denies vomiting Denies urinary hesitancy, Denies urinary incontinence and Denies urinary urgency Musc Denies atrophy, Denies deformity, Reports arthralgias, Denies limited range of motion and Reports muscle weakness Physical exam (Primary Care) Vital Signs: Last Vital Signs BP 130/80 12/15/23 13:37 BMI result Body Mass Index 31.1 Tobacco/Smoking Status: Tobacco use Status Tobacco use date assessed 08/09/23 12/15/23 13:40 Patient Tobacco Use Status Former Tobacco user 12/15/23 13:40 Tobacco use type Cigarette 12/15/23 13:40 e-Cigarette/Vaping Use Never Used 12/15/23 13:40 Thrive Assessment: Date of Thrive Assessment Date Thrive assessed 08/09/23 12/15/23 13:40 Const Orientation/consciousness: patient oriented x3 HENMT Head: Yes normal to inspection, Yes normocephalic and Yes atraumatic Ears: external ears normal Eyes General: appearance normal, both eyes and all related structures Eyelids: Yes eyelids normal Conjunctivae: conjunctivae normal Neck Neck: Yes normal visual inspection and Yes supple Resp Effort & Inspection: normal respiratory effort Auscultation: clear to auscultation bilaterally Cardio Jugular venous distension: no JVD Rate: regular rate Rhythm: regular rhythm Heart sounds: S1 normal heart sound present and S2 normal heart sound present GI Inspection: Yes normal to inspection Palpation (GI): Soft to palpation and nontender Auscultation: normal bowel sounds Skin General skin exam: no rashes or lesions noted Neuro General: patient oriented x3 and no focal motor deficits Extrem General: Yes full ROM Psych Appearance: grossly normal Assessment and Plan Assessment & Plan (1) Annual physical exam: Code(s): Z00.00 - Encounter for general adult medical examination without abnormal findings Plan: Repeat in a year. (2) Right hand pain: Code(s): M79.641 - Pain in right hand Plan: X-ray ordered. Start occupational therapy. (3) Left hand pain: Code(s): M79.642 - Pain in left hand Plan: X-ray ordered. Start occupational therapy. Orders: Orders OT Evaluation and Treatment Today M79.641 - Pain in right hand, M79.642 - Pain in left hand XR hand LT 2V Today M79.642 - Pain in left hand XR hand RT 2V Today M79.641 - Pain in right hand Coding Level of Care Code Est Pt Level 3 (65618) Est Pt Prev Care 40-64y(81065) Diagnoses Annual physical exam Z00.00 Right hand pain M79.641 Left hand pain M79.642 Time Spent (min) 35
[2023-12-15 13:37] VITALS: BP 130/80; BMI 31.1
== END 2023-12-15 14:15 | disposition home or self-care (01) ==
PROVIDERS: PCP Internal Medicine; Visit Provider Internal Medicine
DX: Z00.00 Encounter for general adult medical examination without abnormal findings (principal); M79.641 Pain in right hand; M79.642 Pain in left hand
CPT/HCPCS: 99213; 99396

== ENCOUNTER 2024-01-31 08:00 | Outpatient (RCR) | payer BC, SELFPAY ==
--- NOTE | 2024-01-24 10:24 | MHC.OT.OEV ---
[address] [phone] F: [phone] Occupational Therapy Evaluation Patient Name: Dustin Leonard Diagnosis: (B)hand pain Date of Onset: 12/15/23 Date of Surgery: Attending Provider: Roro Hernández Prescribed Treatment: Follow Up Appointment: History of Current Condition: Patient is a 44 year old male with reports (B)hand pain. 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 He lives with his in a 2 level home and has 2 adult children and 1 grandson. He report the pain is worse in the morning and they feel stiff. He states the (L)hand is affected more then his (R) and is unable to make a functional fist. 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 part time min (A) ADLs Patient reports difficulty with opening jars, typing on work computer Sleep: Sleeping through the night Driving: Difficulty with driving Vision: Balance: Pain Assessment Pain Score: 6 Pain Scale Used: Pain Location and Description: (B)hands (L)3rd digit is the most painful Aggravating Factors: Alleviating Factors: Tylenol Skin and Soft Tissue Assessment Skin and Soft Tissue: Swelling Comments: In the fingers Nerve assessment Ulnar Nerve: Median Nerve: Radial Nerve: Comments: WFL Sensory Assessment Temperature: Light Touch: Proprioception: Vibration: Comments: Edema Assessment Upper Extremity: Lower Extremity: Comments: Dexterity Assessment Dexterity: B/L Impaired Comments: Functional Dexterity Test (R)35.5 seconds (L) 30 seconds Special Tests Comments: AROM(PROM) Strength Cervical Cervical Flexion: Cervical Extension: Cervical Lateral Flexion: Cervical Rotation: Comments: WFL Shoulder Flexion: Extension: Abduction: Internal Rotation: External Rotation: Comments: Flexion: Extension: Abduction: Internal Rotation: External Rotation: Comments: WFL Elbow Flexion: Extension: Pronation: Supination: Comments: Flexion: Extension: Pronation: Supination: Comments: WFL Wrist Flexion: Extension: Ulnar Deviation: Radial Deviation: Comments: Flexion: Extension: Ulnar Deviation: Radial Deviation: Comments: WFL Thumb Thumb CMC Flexion: Thumb MCP Flexion: Thumb IP Flexion: Radial Abduction: Palmar Abduction: Heavener (Kapandji 0-10): Comments: Able to perform opposition. Digits Index MCP: PIP: 85(L) DIP: 60 Long MCP: PIP: 60(L) DIP: 45 Ring MCP: PIP: 55(L) DIP: 45 Small MCP: PIP: 90(L) DIP: 35 Comments: Difficulty with making a composite fist (L) (R)WFL Gross Grasp: 87.5lbs. (R), 10.5lbs. (L) Lateral Pinch: Two-Point Pinch: Three-Jaw Raul: Comments: Patient Education Primary Language: [employer] Salesperson Required: No Current Knowledge: Teaching Method: Education Needs Identified on Evaluation: How did patient/family demonstrate learning? Barriers to Learning: Readiness for Learning: Who was educated? 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 He reports pain and stiffs in (B)hands when he wakes in the morning. He stated he noticed that if he moves them they feel better. Quick DASH= 59.1 indicating patient's perceived impairment during self care tasks. He state he has difficulty opening jars and using his work computer. Based on initial evaluation patient presents with impaired strength, impaired ROM, impaired coordination, pain and impaired performance during self care tasks. Due to the documented impairments it is recommended that patient receive skilled Occupational therapy in order to achieve his PLOF of (I) during self care tasks. Thank you for your referral STG Duration: 2 weeks Short Term Goals: Patient will report 4/10 pain in (B)hands during self care tasks Patient will be (I) with edema management techniques Patient will be (I) utilizing compression glove PRN Patient will increase (L)mold stripper strength to 20lbs. LTG Duration: 4 weeks Alf Goals: Patient will report 0/10 pain in (B) hands during self care tasks Patient will be (I) with HEP Frequency and Duration: The patient will be seen 2x a week for 4 weeks Treatment Plan: Therapeutic Exercise Therapeutic Activity Home Exercise Program Patient Education Edema Control ADL Training Paraffin Fluidotherapy MHP Cold Packs Joint Mobilization Soft Tissue Mobilization Kinesiotaping SKilled OT eval and treat 2x a week for 4 weeks Electronically Signed By: MARIAH Patel/ELA Rome Reviewed/agree with student documentation: Therapist: Please sign and return to therapist, Thank you for your referral.
--- NOTE | 2024-04-26 09:23 | MHC.OT.IDC ---
[address] [phone] F: [phone] Occupational Therapy Inpatient Daily Note Patient Name: Dustin Leonard Discharge Date: Assessment: Discharge Reason: Discharge Recommendations: Comments: Electronically Signed By: MARIAH Patel/Wild, CLT Reviewed/agree with student documentation: Therapist:
== END 2024-04-26 09:25 | disposition home or self-care (01) ==
LOC: HO.OT 08:00
PROVIDERS: PCP Internal Medicine; Visit Provider Internal Medicine
DX: M79.641 Pain in right hand (principal); M79.642 Pain in left hand
CPT/HCPCS: 97110; 97140; 97165

== ENCOUNTER 2024-04-03 09:44 | Day surgery (SDC) | payer BC, SELFPAY ==
--- NOTE | 2024-04-02 13:36 | HO.ANESPROP2 ---
Documented by User: Vanda Stern NP 04/02/24 13:36 HPI - Anesthesia Eval Consult details Narrative: 44yo M for Colonoscopy PMFSH Active Problems Active Problems: All Active Problems Right hand pain (Acute) Left hand pain (Acute) Enlarged prostate (Acute) Impaired glucose tolerance (Acute) Transaminitis (Acute) Elevated blood pressure reading without diagnosis of hypertension (Acute) Pure hypercholesterolemia (Acute) Prostatitis (Acute) Urinary frequency (Acute) Elevated PSA (Acute) Obese (Acute) Colon cancer screening (Acute) Screening for hypothyroidism (Acute) Screening for diabetes mellitus (DM) (Acute) Annual physical exam (Acute) Past Medical History Medical History HLD (hyperlipidemia) Family History Family History Mother Diabetes Hypertension Arthritis Father Hypertension Diabetes Arthritis Pacemaker Additional heart attack (anterolateral wall) Family/Other Mental health disorder Substance use disorder Sister Tachycardia Surgical History Surgical History No pertinent past surgical history Social History Social History Housing: House Alcohol intake: former Patient Tobacco Use Status: Former Tobacco user Tobacco use type: Cigarette e-Cigarette/Vaping Use: Never Used Second Hand Smoke Exposure: No Use of substances other than those prescribed or required for medical reasons: No Are you DNR?: No Advance Directives: No Advance Directives Information Provided: Yes service: No Current occupational status: employed Current occupation: [employer] Current occupational exposures/hazards: No Cognitive needs: No Hearing needs: No Vision needs: Yes Meds Allergies Allergy/AdvReac Type Severity Reaction Status Date / Time aspirin Allergy Severe Anaphylaxis Verified 04/03/24 13:42 Sea food Allergy Severe swelling, Uncoded 04/03/24 13:42 sweating, trouble breathing Home Medications ?Medication ?Instructions ?Recorded ?Confirmed ?Last Taken ?Type No Known Home Meds 04/03/24 04/03/24 Unknown History Assessment and Plan Assessment Anesthesia Assessment: Chart Reviewed Documented by User: Mayra Reno MD 04/03/24 13:57 PMF Past Medical History Medical History HLD (hyperlipidemia) Family History Family History Mother Diabetes Hypertension Arthritis Father Hypertension Diabetes Arthritis Pacemaker Additional heart attack (anterolateral wall) Family/Other Mental health disorder Substance use disorder Sister Tachycardia Family history of problems with anesthesia: No Surgical History Surgical History No pertinent past surgical history History of Problems with Anesthesia: No Social History Social History Housing: House Alcohol intake: former Patient Tobacco Use Status: Former Tobacco user Tobacco use type: Cigarette e-Cigarette/Vaping Use: Never Used Second Hand Smoke Exposure: No Use of substances other than those prescribed or required for medical reasons: No Are you DNR?: No Advance Directives: No Advance Directives Information Provided: Yes service: No Current occupational status: employed Current occupation: [employer] Current occupational exposures/hazards: No Cognitive needs: No Hearing needs: No Vision needs: Yes Meds Allergies Allergy/AdvReac Type Severity Reaction Status Date / Time aspirin Allergy Severe Anaphylaxis Verified 04/03/24 13:42 Sea food Allergy Severe swelling, Uncoded 04/03/24 13:42 sweating, trouble breathing Home Medications ?Medication ?Instructions ?Recorded ?Confirmed ?Last Taken ?Type No Known Home Meds 04/03/24 04/03/24 Unknown History Exam Airway Mallampati Class: II TM Dist: >3cm Neck ROM: Full Heart: rrr Lungs: cta Assessment and Plan Assessment Anesthesia Assessment: Anesthesia Plan Discussed Final Anesthetic Review Family History of Problems with Anesthesia: No History of Problems with Anesthesia: No NPO: Yes ASA Class: II Final Preanesthetic Review: No Changes in Pt Med Stat, Meds/Allgs Chart Reviewed, Consent Obtained/Reviewed and Anes Risks/Benef Reviewed Patient Risk: Intermediate Procedure Risk: Low Anesthetic Plan Anesthetic Plan: MAC: Disposition: Standard PACU
[2024-04-03 13:43] VITALS: BMI 30.6
[2024-04-03 13:44] VITALS: BP 141/93; PULSE 53; RESP 18; TEMP 36.2; O2SAT 99
[2024-04-03] MEDS: Lactated Ringers 1,000 ML 100 ML IVCONT (14:10)
--- NOTE | 2024-04-03 14:55 | MHC.SHP ---
Pre-Procedural Eval Section A - 24 Hr Update-Section A only Date of Service: 04/03/24 Section B - Complete if H&P > 30 days Chief Complaint: screening Relevant Family History (Specify if Yes): No Relevant Social History: None Present Medications: see Short Stay Collaborative assessment Medical History: Significant History (HLD (hyperlipidemia)) History of Previous Operations: No relevant previous surgery Allergies: Allergies Allergy/AdvReac Type Severity Reaction Status Date / Time aspirin Allergy Severe Anaphylaxis Verified 04/03/24 13:42 Sea food Allergy Severe swelling, Uncoded 04/03/24 13:42 sweating, trouble breathing Review of Systems Sugical H&P ROS: Negative: Constitution, Cardiovascular, Respiratory, Neurological, Psychiatric, Hem-Onc, Allergic/Immunologic, Gastrointestinal, Genitourinary, Musculoskeletal, Integumentary, Endocrine and Eyes/Ears/Nose/Throat Exam Surgical H&P Exam: Normal: HEENT, Normal: Heart, Normal: Lungs, Normal: Extremities, Normal: Abdomen, Normal: Skin and Normal: Neurological Plan Diagnosis/Plan: Unchanged I have reviewed the history and physical and performed a pertinent physical examination on my patient. No changes have occurred unless specified. Time Spent With Patient Time: Total time managing care of this patient today ____ minutes.
--- NOTE | 2024-04-03 14:57 | P.OPN-COLO_ITS ---
Colonoscopy Operative Note Operative Note Date of Service: 04/03/24 Narrative: Operative Information Procedure Description: Colonoscopy Indication: screening Anesthesia: MAC COLONOSCOPY Instrument: Olympus variable stiffness pediatric scope 190L Colonoscopy Monitoring: Vital signs and clinical assessment, continuous EKG monitoring, Pulse oximetry, Carbon Dioxide monitoring and blood pressure monitoring were done throughout the procedure. Colon withdrawal time was 11 minutes. Procedure: The patient was placed in the left lateral decubitis position and pre-procedure medications were administered. After a digital rectal examination of the ano-rectum, the video colonoscope was inserted into the rectum and advanced through the colon to the cecum/TI. The colonoscope was slowly withdrawn in a retrograde panoramic fashion and the colon mucosa was carefully examined including a retroflexed view of the rectum. Findings and interventions are described below. Procedure Difficulty: easy Findings: Terminal Ileum-normal Cecum:normal Ascending Colon: 10 mm sessile polyp removed with cold snare Transverse Colon -normal Descending Colon:normal Sigmoid Colon: mild diverticulosis Rectum: Retroflexion with small to moderate internal hemorrhoids seen, grade I, mild inflammed Anorectum - normal Intervention: cold snare Colon preparation: [place] Bowel Preparation Scale Right colon; 2 Transverse colon: 2 Left colon; 1-2 (0 = Unprepared colon segment with mucosa not seen due to solid stool that cannot be cleared. 1 = Portion of mucosa of the colon segment seen, but other areas of the colon segment not well seen due to staining, residual stool and/or opaque liquid. 2 = Minor amount of residual staining, small fragments of stool and/or opaque liquid, but mucosa of colon segment seen well. 3 = Entire mucosa of colon segment seen well with no residual staining, small fragments of stool or opaque liquid) Impression and Post Procedure Diagnosis: diverticulosis colon polyp internal hemorrhoids Plan: High fiber diet leaflet Avoid straining at stool, epsom salts and sitz bath, anusol supps or cream Repeat Colonoscopy in 5 years due to areas of fair prep left side or earlier if clinically indicated Above findings were reviewed with the patient and relevant handouts were provided if indicated.
[2024-04-03 15:30] VITALS: BP 109/72; PULSE 61; RESP 16; TEMP 36.1; O2SAT 99
[2024-04-03 15:45] VITALS: BP 134/88; PULSE 45; RESP 18; TEMP 36.1; O2SAT 99
== END 2024-04-03 15:51 | disposition home or self-care (01) ==
PROVIDERS: PCP Internal Medicine; Visit Provider Internal Medicine Gastroenterology
PROC: 0DJD8ZZ Inspection of Lower Intestinal Tract, Via Natural or Artificial Opening Endoscopic (ICD-10-PCS; CPT 45378; principal; 2024-04-03 12:40)
DX: Z12.11 Encounter for screening for malignant neoplasm of colon (principal); D12.2 Benign neoplasm of ascending colon; K57.30 Diverticulosis of large intestine without perforation or abscess without bleeding; K64.0 First degree hemorrhoids; E78.00 Pure hypercholesterolemia, unspecified; Z87.891 Personal history of nicotine dependence
CPT/HCPCS: 45385; 88305; J2704

== ENCOUNTER → 2024-04-03 09:44 | Outpatient (BNV) | payer BC, SELFPAY | PROVIDERS: PCP Internal Medicine; Visit Provider Internal Medicine Gastroenterology | DX: Z12.11 Encounter for screening for malignant neoplasm of colon (principal); K63.5 Polyp of colon; K64.0 First degree hemorrhoids | CPT/HCPCS: 45385 ==

== ENCOUNTER 2024-08-17 09:28 | Outpatient (REF) | payer BC, SELFPAY ==
[2024-08-17 11:39] LABS: PSA,Total (Free>4and<10) 9.31 ng/mL (0.00-4.00)
[2024-08-20 12:14] LABS: Free Prostate Spec Ag 0.6 ng/mL; Percent Free Prostate Spec Ag 6 % (calc) (>25); Prostate Specific Ag Total 9.6 ng/mL (< OR = 4.0)
== END 2024-08-17 09:29 | disposition home or self-care (01) ==
LOC: HO.10HDL 09:28
PROVIDERS: Visit Provider Urology
DX: R97.20 Elevated prostate specific antigen [PSA] (principal); Z12.5 Encounter for screening for malignant neoplasm of prostate
CPT/HCPCS: 36415; 84153; 84154

== ENCOUNTER 2024-09-14 15:47 | Outpatient (AMB) | payer BC, SELFPAY ==
--- NOTE | 2024-09-14 15:59 | A.OFFVIS_ITS ---
Intake Visit Reasons: 9m/PSA Intake Note: Patient is present for 9M/PSA Urology Medication:NONE Antibiotic Allergy:NONE Blood Thinner:NONE TODAY'S PVR:28ML'S [employer] Photo Operator Required: No Allergies aspirin Allergy (Severe, Verified 09/14/24 15:59) Anaphylaxis Sea food Allergy (Severe, Uncoded 09/14/24 15:59) swelling, sweating, trouble breathing Medication List - Last Reconciled 09/14/24 by Triston Evangelista MD No Known Home Meds HPI Comments Details: 09/14/24-- History of Present Illness The patient is a 44-year-old male presenting with elevated PSA levels. The current PSA is recorded at 9.31 ng/mL, showing a slight increase from previous levels. Prior biopsies showed no malignant cells. The patient denies any urinary symptoms, such as frequency, urgency, or dysuria. He has no known family history of prostate cancer, with both father and grandfather alive and undiagnosed with the condition. Urinary Symptoms Review - No difficulty urinating - No nocturia - No reported urinary frequency or urgency - No incontinence reported Results - Labs: Elevated PSA level of 9.31 ng/mL Discussion Notes I discussed with the patient the increase in PSA levels, indicating it warrants further investigation even though prior biopsies showed no malignancy. I recommended conducting an MRI of the prostate to identify any specific lesions. Should lesions be detected, we may pursue a targeted biopsy under anesthesia to ensure accuracy. The patient was informed of this approach, and we discussed the implications of early detection, even in cases where malignancies are not clinically significant. Additionally, I clarified the process for MRI authorization through the patient's insurance and explained that the nurse would inform him of any issues. Plan An MRI of the prostate will be ordered to investigate potential lesions given the elevated PSA level. If lesions are detected, I will perform a targeted bi opsy under anesthesia for further accurate evaluation. The patient understands the risks and benefits, and consent has been obtained. If required, anesthesia will also be used for any potential repeat biopsies. Follow-up discussions will occur after the MRI to determine further action. Patient Instructions - Proceed with scheduling an MRI of the prostate once insurance authorization is confirmed. - Await contact from the nurse regarding insurance issues if any arise. - Expect a follow-up phone call to discuss MRI findings and subsequent steps. - Reach out to medical staff if experiencing any changes in urinary symptoms or health concerns. Patient was informed and verbally consented to the use of an ambient scribe for clinic note documentation during this visit. 11/21/2023--Dustin is a 43-year-old male who is being evaluated due to elevated PSA. He was initially evaluated by the nurse practitioner on 09/27/2023. PSA 10/21/2023--7.35 ng/mL. He is status post prostate biopsy. I reviewed pathology results benign prostate tissue. The patient denies obstructive urinary symptoms. He states that since the prostate biopsy has had hesitancy at the end of the stream if this persists and want him to give us. Discussed that it is important to continue to monitor with PSA screening. Review of chart: 09/27/2023-- Dustin is a pleasant 43-year-old male patient of Dr. Jovan Hernández. He presents to the office today for a follow up. Of note, patient was seen approximately 1 year ago for an elevated PSA at which time recommendations were made for prostate biopsy. However, in discussion with the patient today he reports having lost his insurance and was unable to undergo prostate procedure. He reports he has since straightened out his insurance and would like to have prostate biopsy. When asked patient reports to be doing and feeling well. He denies any urinary issues or concerns at this time. He reports to be happy with his current voiding parameters. When asked he denies urinary urgency, urinary frequency, incontinence, nocturia, hematuria, dysuria, foul smelling urine, changes to urinary stream, flank pain, fever, and or chills. Unable to obtain urine for urinalysis today however, PVR 44ml's. When asked patient denies any known family history of prostate cancer. Discussed at length potential causes for elevated PSA. REMINGTON offered however deferred. He otherwise offers no other issues or concerns at this time. In review of patient's chart PSAs are as follows. 09/23--9.6 11/23--8.1 10/21/2023--7.35 PFSH Medical History HLD (hyperlipidemia) Surgical History No pertinent past surgical history Family History Mother Diabetes Hypertension Arthritis Father Hypertension Diabetes Arthritis Pacemaker Additional heart attack (anterolateral wall) Family/Other Mental health disorder Substance use disorder Sister Tachycardia Social History Housing: House Alcohol intake: former Patient Tobacco Use Status: Former Tobacco user Tobacco use type: Cigarette e-Cigarette/Vaping Use: Never Used Second Hand Smoke Exposure: No service: No Current occupational status: employed Current occupation: [employer] Current occupational exposures/hazards: No Cognitive needs: No Hearing needs: No Vision needs: Yes Office Procedures Post Void Residual Post Residual Void Post Void Residual (PVR): 28 [id number] Void Residual by ultrasound Results AMB Urinalysis, Automated UA Leukoctes 0 Gifty/uL Last Edit by Nimisha Lacy on 09/14/24 16:16 UA Nitrite Negative Last Edit by Nimisha Lacy on 09/14/24 16:16 UA Urobilinogen 3.5 mg/dL Last Edit by Nimisha Lacy on 09/14/24 16:16 UA Protein 1 mg/dL Last Edit by Nimisha Lacy on 09/14/24 16:16 UA pH 7.0 Last Edit by Nimisha Lacy on 09/14/24 16:16 UA Blood 0 Luciano/uL Last Edit by Nimisha Lacy on 09/14/24 16:16 UA Specific [place] 1.015 Last Edit by Nimisha Lacy on 09/14/24 16:16 UA Ketone Negative Last Edit by Nimisha Lacy on 09/14/24 16:16 UA Bilirubin 0 mg/dL Last Edit by Nimisha Lacy on 09/14/24 16:16 UA Glucose 0 mg/dL Last Edit by Nimisha Lacy on 09/14/24 16:16 Results Reviewed Results Reviewed: Laboratory Last Values Urine pH (Auto) 7.0 09/14/24 16:03 Specific [place] (Auto) 1.015 09/14/24 16:03 Urine Protein (Auto) 1 mg/dL 09/14/24 16:03 Glucose (UA)(Auto) 0 mg/dL 09/14/24 16:03 Urine Ketones (Auto) Negative 09/14/24 16:03 Urine Blood (Auto) 0 Luciano/uL 09/14/24 16:03 Urine Nitrite (Auto) Negative 09/14/24 16:03 Urine Bilirubin (Auto) 0 mg/dL 09/14/24 16:03 Urine Urobilinogen (Auto) 3.5 mg/dL 09/14/24 16:03 Leukocyte Esterase (Auto) 0 Gifty/uL 09/14/24 16:03 Assessment & Plan Assessment & Plan Orders: Orders AMB Urinalysis Automated Today Z13.9 - Encounter for screening, unspecified Coding CPT Codes Post Residual Void - PVR CPT Code: 90771-[id number] Void Residual by ultrasound ([id number])
--- OUTSIDE RECORDS SUMMARY | 2024-09-14 16:45 | XMS_ITS ---
Author Name [facility] Organization Unknown Care Team Organization Name Specialty Phone Email Start Date End Da te [employer] 07/21/2022 0 02/20/2024
== END 2024-09-14 16:38 | disposition home or self-care (01) ==
PROVIDERS: PCP Internal Medicine; Visit Provider Urology
DX: Z13.9 Encounter for screening, unspecified (principal)

== ENCOUNTER → 2024-09-14 15:47 | Outpatient (BNVA) | payer BC, SELFPAY | PROVIDERS: PCP Internal Medicine; Visit Provider Urology | DX: N40.0 Benign prostatic hyperplasia without lower urinary tract symptoms (principal); R97.20 Elevated prostate specific antigen [PSA] | CPT/HCPCS: 51798; 81003 ==

== ENCOUNTER → 2024-11-09 07:54 | Outpatient (BNV) | payer BC, SELFPAY | PROVIDERS: PCP Internal Medicine; Visit Provider Radiology Diagnostic Radiology | DX: N40.0 Benign prostatic hyperplasia without lower urinary tract symptoms (principal) | CPT/HCPCS: 72197 ==

== ENCOUNTER 2024-11-09 08:36 | Outpatient (REF) | payer BC, SELFPAY ==
--- NOTE | ~2024-11-09 | MR_ITS ---
EXAMINATION: MR PROSTATE WITHOUT THEN WITH IV CONTRAST HISTORY: N40.0 - Benign prostatic hyperplasia without lower urinary tract symptoms TECHNIQUE: 1.5T body coil survey of the pelvis was performed. Phase array coil imaging of the prostate was performed in multiplanar high resolution axial, coronal, sagittal fast spin echo T2 and axial T1 weighted imaging sequences. Axial diffusion imaging at intermediate and high field performed with ADC mapping. Next, 10 mL Gadavist was given by intravenous infusion, and dynamic axial imaging performed. COMPARISON: There are no prior studies for comparison. CLINICAL DATA: Most recent PSA: 9.31 ng/mL on 08/17/2024 PSA Density: 0.27 ng/mL squared Prostate Biopsy: Negative biopsy on 10/25/2023. FINDINGS: Prostate size: 3.8 x 5.2 x 3.3 cm. Calculated prostate volume is 33.9 mL. Hemorrhage: None. Transitional Zone: There is mild heterogeneous nodular hypertrophy of the transitional zone. Peripheral Zone: There are multiple linear and wedge-shaped foci of decreased signal intensity within the peripheral zone on T2-weighted images, which can be seen in the setting of cystitis or scarring. There is an area of interest in the right posteromedial and posterolateral peripheral zone in the mid gland (series 7, images 16-18) with imaging characteristics is as follows: Lesion #1, measuring 1.7 cm in size: DWI PI-RADS v2.1 score: 3 T2 PI-RADS v2.1 score: 3 DCE PI-RADS v2.1 score: - Overall PI-RADS v2.1 score: 3 Capsular contact: yes Extracapsular extension: None Seminal vesicle invasion: None Neurovascular bundle involvement: None Seminal Vesicles/Ejaculatory Ducts: Symmetric and normal in signal and caliber. Pelvic Lymph Nodes: No obturator or internal iliac lymph nodes meeting size criteria for adenopathy. Marrow Signal: Normal marrow signal and enhancement without focal lesion identified. MR/MR Prostate wo/w con IMPRESSION: Area of interest in the right posteromedial and posterolateral peripheral zone in the mid gland as described, which is indeterminate for clinically significant prostate carcinoma. If imaging guided biopsy is planned, sampling of this region is recommended. PI-RADS 3: Intermediate (the presence of clinically significant cancer is equivocal) PI-RADS Assessment Categories PI-RADS 1: Very low (clinically significant cancer is highly unlikely to be present) PI-RADS 2: Low (clinically significant cancer is unlikely to be present) PI-RADS 3: Intermediate (the presence of clinically significant cancer is equivocal) PI-RADS 4: High (clinically significant cancer is likely to be present) PI-RADS 5: Very high (clinically significant cancer is highly likely to be present) [employer]. MR Prostate Imaging Reporting and Data System version 2.1. [email or web address] Electronically signed by: Jaiden Emanuel MD 11/09/2024 10:57 AM EDT
[2024-11-09] MEDS: gadobutroL 10 ML VIAL IVPUSH (09:50)
== END 2024-11-09 08:37 | disposition home or self-care (01) ==
LOC: HO.MRI 08:36
PROVIDERS: PCP Internal Medicine; Visit Provider Urology
DX: N40.0 Benign prostatic hyperplasia without lower urinary tract symptoms (principal); N41.9 Inflammatory disease of prostate, unspecified; R35.0 Frequency of micturition
CPT/HCPCS: 72197; A9585

== ENCOUNTER 2024-11-16 16:23 | Outpatient (AMB) | payer BC, SELFPAY ==
--- NOTE | 2024-11-16 16:12 | A.OFFVIS_ITS ---
Intake Visit Reasons: Prostate MRI Follow up Intake Note: Patient is present for follow up/Prostate MRI * MRI 11/09 Urology Medication:NONE Antibiotic Allergy:NONE Blood Thinner:NONE Personal Secretary Required: No Allergies aspirin Allergy (Severe, Verified 01/03/25 08:10) Anaphylaxis Sea food Allergy (Severe, Uncoded 01/03/25 08:10) swelling, sweating, trouble breathing HPI Comments Details: 11/16/24--FU MR prostate results 11/09/24--Area of interest in the right posteromedial and posterolateral peripheral zone in the mid gland as described, which is indeterminate for clinically significant prostate carcinoma. If imaging guided biopsy is planned, sampling of this region is recommended. PI-RADS 3: Intermediate (the presence of clinically significant cancer is equivocal) Plan MRI guided prostate biopsy 09/14/24--44-year-old male presenting with elevated PSA levels. The current PSA is recorded at 9.31 ng/mL, showing a slight increase from previous levels. Prior biopsies showed no malignant cells. The patient denies any urinary symptoms, such as frequency, urgency, or dysuria. He has no known family history of prostate cancer, with both father and grandfather alive and undiagnosed with the condition. I discussed with the patient the increase in PSA levels, indicating it warrants further investigation even though prior biopsies showed no lionel gnancy. I recommended conducting an MRI of the prostate to identify any specific lesions. Should lesions be detected, we may pursue a targeted biopsy under anesthesia to ensure accuracy. Results - Labs: 08/17/24--PSA level of 9.31 ng/mL 11/21/2023--Dustin is a 43-year-old male who is being evaluated due to elevated PSA. He was initially evaluated by the nurse practitioner on 09/27/2023. PSA 10/21/2023--7.35 ng/mL. He is status post prostate biopsy. I reviewed pathology results benign prostate tissue. The patient denies obstructive urinary symptoms. He states that since the prostate biopsy has had hesitancy at the end of the stream if this persists and want him to give us. Discussed that it is important to continue to monitor with PSA screening. 09/27/2023-- Dustin is a pleasant 43-year-old male patient of Dr. Jovna Hernández. He presents to the office today for a follow up. Of note, patient was seen approximately 1 year ago for an elevated PSA at which time recommendations were made for prostate biopsy. However, in discussion with the patient today he reports having lost his insurance and was unable to undergo prostate procedure. He reports he has since straightened out his insurance and would like to have prostate biopsy. When asked patient reports to be doing and feeling well. He denies any urinary issues or concerns at this time. He reports to be happy with his current voiding parameters. When asked he denies urinary urgency, urinary frequency, incontinence, nocturia, hematuria, dysuria, foul smelling urine, changes to urinary stream, flank pain, fever, and or chills. Unable to obtain urine for urinalysis today however, PVR 44ml's. When asked patient denies any known family history of prostate cancer. Discussed at length potential causes for elevated PSA. REMINGTON offered however deferred. He otherwise offers no other issues or concerns at this time. In review of patient's chart PSAs are as follows. 09/23--9.6 11/23--8.1 10/21/2023--7.35 [facility]LY [facility], [facility] Medical History (Updated 01/14/25 @ 14:03 by Triston Evangelista MD) HLD (hyperlipidemia) Surgical History No pertinent past surgical history Family History Mother Diabetes Hypertension Arthritis Father Hypertension Diabetes Arthritis Pacemaker Additional heart attack (anterolateral wall) Family/Other Mental health disorder Substance use disorder Sister Tachycardia Social History Housing: House Alcohol intake: former Patient Tobacco Use Status: Former Tobacco user Tobacco use type: Cigarette e-Cigarette/Vaping Use: Never Used Second Hand Smoke Exposure: No service: No Current occupational status: employed Current occupation: [employer] Current occupational exposures/hazards: No Cognitive needs: No Hearing needs: No Vision needs: Yes Review of Systems Const All systems reviewed & are unremarkable except as noted in HPI and below Reports no additional complaints Eyes Reports no additional complaints ENT Reports no additional complaints Card Reports no additional complaints Resp Reports no additional complaints GI Reports no additional complaints Reports as per HPI Musc Reports no additional complaints Skin/Breast Reports system reviewed and no additional complaints, except as documented Neuro Reports no additional complaints Psych Reports no additional complaints Endo Reports no additional complaints Kayode/Lymph Reports no additional complaints Aller/Immun Reports no additional complaints Telehealth Telehealth Telehealth Platform: [employer] Location of provider rendering services: practice address Location of patient: address on file Patient Identification confirmed using: Name, : Yes Telehealth method: video Patient verbally consented to treatment: Yes Patient verbally consented to billing insurance company: Yes Patient informed of any privacy concerns related to visit: Yes Results Reviewed Results Reviewed: Date of Service: 11/09/24 EXAMINATION: MR PROSTATE WITHOUT THEN WITH IV CONTRAST HISTORY: N40.0 - Benign prostatic hyperplasia without lower urinary tract symptoms TECHNIQUE: 1.5T body coil survey of the pelvis was performed. Phase array coil imaging of the prostate was performed in multiplanar high resolution axial, coronal, sagittal fast spin echo T2 and axial T1 weighted imaging sequences. Axial diffusion imaging at intermediate and high field performed with ADC mapping. Next, 10 mL Gadavist was given by intravenous infusion, and dynamic axial imaging performed. COMPARISON: There are no prior studies for comparison. CLINICAL DATA: Most recent PSA: 9.31 ng/mL on 08/17/2024 PSA Density: 0.27 ng/mL squared Prostate Biopsy: Negative biopsy on 10/25/2023. FINDINGS: Prostate size: 3.8 x 5.2 x 3.3 cm. Calculated prostate volume is 33.9 mL. Hemorrhage: None. Transitional Zone: There is mild heterogeneous nodular hypertrophy of the transitional zone. Peripheral Zone: There are multiple linear and wedge-shaped foci of decreased signal intensity within the peripheral zone on T2-weighted images, which can be seen in the setting of cystitis or scarring. There is an area of interest in the right posteromedial and posterolateral peripheral zone in the mid gland (series 7, images 16-18) with imaging characteristics is as follows: Lesion #1, measuring 1.7 cm in size: DWI PI-RADS v2.1 score: 3 T2 PI-RADS v2.1 score: 3 DCE PI-RADS v2.1 score: - Overall PI-RADS v2.1 score: 3 Capsular contact: yes Extracapsular extension: None Seminal vesicle invasion: None Neurovascular bundle involvement: None Seminal Vesicles/Ejaculatory Ducts: Symmetric and normal in signal and caliber. Pelvic Lymph Nodes: No obturator or internal iliac lymph nodes meeting size criteria for adenopathy. Marrow Signal: Normal marrow signal and enhancement without focal lesion identified. IMPRESSION: Area of interest in the right posteromedial and posterolateral peripheral zone in the mid gland as described, which is indeterminate for clinically significant prostate carcinoma. If imaging guided biopsy is planned, sampling of this region is recommended. PI-RADS 3: Intermediate (the presence of clinically significant cancer is equivocal) PI-RADS Assessment Categories PI-RADS 1: Very low (clinically significant cancer is highly unlikely to be present) PI-RADS 2: Low (clinically significant cancer is unlikely to be present) PI-RADS 3: Intermediate (the presence of clinically significant cancer is equivocal) PI-RADS 4: High (clinically significant cancer is likely to be present) PI-RADS 5: Very high (clinically significant cancer is highly likely to be present) Collected: 10/25/23 Location: [facility] Received: 10/26/23 Diagnosis Prostate, needle core biopsies: A. Left base lateral: Benign prostatic tissue. B. Left base medial: Benign prostatic tissue. C. Left mid lateral: Benign prostatic tissue. D. Left mid medial: Benign prostatic tissue. E. Left apex lateral: Benign prostatic tissue. F. Left apex medial: Benign prostatic tissue. G. Right base lateral: Benign prostatic tissue. H. Right base medial: Benign prostatic tissue. I. Right mid lateral: Benign prostatic tissue. J. Right mid medial: Benign prostatic tissue. K. Right apex lateral: Benign prostatic tissue. L. Right apex medial: Benign prostatic tissue. Clinical History Elevated prostate specific antigen (PSA) Assessment & Plan Assessment & Plan (1) Elevated PSA: Code(s): R97.20 - Elevated prostate specific antigen [PSA] Category: Medical (2) Enlarged prostate: Code(s): N40.0 - Benign prostatic hyperplasia without lower urinary tract symptoms Category: Medical (3) Abnormal MRI: Code(s): R93.89 - Abnormal findings on diagnostic imaging of other specified body structures Category: Medical Plan MR guided prostate bx with Dr. Nazario Patient Instructions: The patient had an opportunity to ask questions regarding treatment plan. The patient expressed understanding and agreement with the above treatment plan. The patient is aware they should contact our office by phone for worsening of their current condition or the appearance of new symptoms. Compliance is encouraged with any medications and followup testing that is ordered. It is a privilege to be allowed the opportunity to participate in the urologic care of your patient. If you have any questions or concerns regarding treatment for the above conditions please do not hesitate to contact me. The office telephone contact is [phone]. This note is constructed in part using voice recognition software. While every effort has been made to ensure accuracy medical transcription radiology errors may have been included. Yours sincerely, Triston Evangelista MD Scribe Plan - Not visible on output: Patient was informed and verbally consented to the use of an ambient scribe for clinic note documentation during this visit. Coding Level of Care Code Tele Est Pt Level 4 (82529) Diagnoses Elevated PSA R97.20 Enlarged prostate N40.0 Abnormal MRI R93.89
== END 2024-11-16 16:30 | disposition home or self-care (01) ==
LOC: HO.HUSH 16:23
PROVIDERS: PCP Internal Medicine; Visit Provider Urology
DX: R97.20 Elevated prostate specific antigen [PSA] (principal); N40.0 Benign prostatic hyperplasia without lower urinary tract symptoms; R93.89 Abnormal findings on diagnostic imaging of other specified body structures
CPT/HCPCS: 99214

== ENCOUNTER 2025-01-03 07:47 | Outpatient (AMB) | payer BC, SELFPAY ==
--- NOTE | 2025-01-03 07:52 | A.OFFPC_ITS ---
Vital Signs 01/03/25 07:53 Height 6 ft 2 in Weight 232 lb BMI 29.8 BP 132/80 Blood Pressure Location Lt brachial Position Sitting Intake Visit Reasons: PE Intake Note: Patient here for a physical exam, c/o pain near right elbow Director Of Estate Required: No Accompanied by: Self / Same As Patient Allergies aspirin Allergy (Severe, Verified 01/03/25 08:10) Anaphylaxis Sea food Allergy (Severe, Uncoded 01/03/25 08:10) swelling, sweating, trouble breathing Medication List - Last Reconciled 01/03/25 by Roro Hernández MD No Known Home Meds Tobacco use date assessed: 01/03/25 Dental Screening Dental Screen Date: 01/03/25 Did you have a dental visit in the last 12 months?: Yes Did you have a dental problem in the last 6 months where you did not have access to dental care?: No Was dental information given to patient?: Patient has dentist HPI HPI Comments History of Present Illness Details The patient is a 44-year-old male presenting with a physical exam. The patient has a history of elevated cholesterol, which was noted last year and is due for a repeat test. An abnormal MRI of the prostate was identified, showing elevated prostate levels, necessitating a follow-up biopsy. The patient is under the care of urology for this condition. The patient reports right elbow pain persisting for several months. An x-ray has been ordered, and a referral to orthopedics has been made for further evaluation. Preventative care measures include a Tdap vaccination administered in 2022 and a colonoscopy performed last year. The colonoscopy revealed a tubular adenoma, and the next screening is scheduled for 2028. - Tdap vaccination administered in 2022 - Colonoscopy performed last year, next due in 2028 [facility] Medical History (Updated 01/03/25 @ 08:24 by Roro Hernández MD) HLD (hyperlipidemia) Surgical History No pertinent past surgical history Family History Mother Diabetes Hypertension Arthritis Father Hypertension Diabetes Arthritis Pacemaker Additional heart attack (anterolateral wall) Family/Other Mental health disorder Substance use disorder Sister Tachycardia Social History Housing: House Alcohol intake: former Patient Tobacco Use Status: Former Tobacco user Tobacco use type: Cigarette e-Cigarette/Vaping Use: Never Used Second Hand Smoke Exposure: No service: No Current occupational status: employed Current occupation: [employer] Current occupational exposures/hazards: No Cognitive needs: No Hearing needs: No Vision needs: Yes Questionnaire PHQ-9 Over the last 2 weeks, how often have you been bothered by any of the following problems? 1. Little interest or pleasure in doing things: not at all 2. Feeling down, depressed, or hopeless: not at all 3. Trouble falling or staying asleep, or sleeping too much: not at all 4. Feeling tired or having little energy: not at all 5. Poor appetite or overeating: not at all 6. Feeling bad about yourself - or that you are a failure or have let yourself or your family down: not at all 7. Trouble concentrating on things, such as reading the newspaper or watching television: not at all 8. Moving or speaking so slowly that other people could have noticed. Or the opposite - being so fidgety or restless that you have been moving around a lot more than usual: not at all 9. Thoughts that you would be better off or of hurting yourself in some way: not at all Total score: 0 Depression Screening Interpretation: Negative Depression Screening Done: Yes 75390 - PHQ-9 Billing: Yes Source: Developed by Drs. Jaiden Brown, Fely Lovell, Doug Smith and colleagues, with an educational hugo from [employer]. Thrive Questionnaire Date Thrive assessed: 01/03/25 I am a: Patient What is your living situation today?: I have a steady place to live Within the past 12 months, did the food you bought not last and you didn't have the money to get more?: I choose not to answer this question Within the past 12 months, did you worry whether your food would run out before you got money to buy more?: Never true Do you have trouble paying for medicines?: No Do you have trouble getting transportation to medical appointments?: No Do you have trouble paying your heating and electricity bill?: No Do you have trouble taking care of your child, family member or friend?: No Do you have trouble with day-to-day activities such as bathing, preparing meals, shopping, managing finances, etc.?: No Are you currently unemployed and looking for a job?: No Are you interested in more education?: Yes Please select the resources that you would like help with: None Currently or been in a relationship where the following occur: No concerns reported THRIVE Score: 0 AUDIT C Alcohol Use Questionnaire (AUDIT-C) 1. How often do you have a drink containing alcohol?: Never Total Score: 0 Score Reviewed/Action Taken: No KAYLAN-7 AMB Questionnaire KAYLAN-7 Date KAYLAN - 7 assessed: 01/03/25 Feeling nervous, anxious, or on edge: 0 = Not at all Not being able to stop or control worryin = Not at all Worrying too much about different things: 0 = Not at all Trouble relaxin = Not at all Being so restless that it is hard to sit still: 0 = Not at all Becoming easily annoyed or irritable: 0 = Not at all Feeling afraid as if something awful might happen: 0 = Not at all Total KAYLAN-7 score (0-4 normal; 5-9 mild; 10-14 moderate; 15-21 severe): 0 Source: Developed by Drs. Jaiden Brown, Fely Lovell, Doug Smith and colleagues, with an educational hugo from [employer]. KAYLAN-7 Assessment Billing KAYLAN-7 Assessment Tool: KAYLAN-7 Assessment 20940 Review of Systems Const All systems reviewed & are unremarkable except as noted in HPI and below Card Denies chest pain at rest, Denies chest pain with activity, Denies edema, Denies irregular heart rhythm, Denies claudication, Denies dyspnea, Denies dyspnea on exertion, Denies orthopnea, Denies paroxysmal nocturnal dyspnea and Denies slow heart rate Resp Denies cough, Denies dyspnea and Denies dyspnea on exertion GI Denies abdominal pain, Denies change in bowel habits, Denies excessive flatus, Denies nausea and Denies vomiting Denies urinary hesitancy, Denies urinary incontinence and Denies urinary urgency Physical exam (Primary Care) Vital Signs: Last Vital Signs BP 132/80 01/03/25 07:53 BMI result Body Mass Index 29.8 Tobacco/Smoking Status: Tobacco use Status Tobacco use date assessed 01/03/25 01/03/25 07:59 Patient Tobacco Use Status Former Tobacco user 01/03/25 07:59 Tobacco use type Cigarette 01/03/25 07:59 e-Cigarette/Vaping Use Never Used 01/03/25 07:59 PHQ-9: PHQ-9 Score PHQ-9: Total score 0 01/03/25 07:59 Depression Screening Interpretation: Negative Thrive Assessment: Date of Thrive Assessment Date Thrive assessed 01/03/25 01/03/25 07:59 Currently or been in a relationship where the following occur: No concerns reported HENFL Head: Yes normal to inspection, Yes normocephalic and Yes atraumatic Ears: external ears normal Eyes General: appearance normal, both eyes and all related structures Eyelids: Yes eyelids normal Conjunctivae: conjunctivae normal Neck Neck: Yes normal visual inspection and Yes supple Resp Effort & Inspection: normal respiratory effort Auscultation: clear to auscultation bilaterally Cardio Jugular venous distension: no JVD Rate: regular rate Rhythm: regular rhythm Heart sounds: S1 normal heart sound present and S2 normal heart sound present GI Inspection: Yes normal to inspection Palpation (GI): Soft to palpation and nontender Auscultation: normal bowel sounds Skin General skin exam: no rashes or lesions noted Neuro General: no focal motor deficits Extrem General: Yes full ROM Psych Appearance: grossly normal Coding Level of Care Code Est Pt Level 3 (17102) Est Pt Prev Care 40-64y(79643) Diagnoses Annual physical exam Z00.00 Right elbow pain M25.521 Additional Codes PHQ-9 - 16163 - PHQ-9 Billing: Yes ([id number]) KAYLAN-7 Assessment Billing - KAYLAN-7 Assessment Tool: KAYLAN-7 Assessment 71643 ([id number]) Time Spent (min) 33 Assessment & Plan Assessment & Plan (1) Annual physical exam: Code(s): Z00.00 - Encounter for general adult medical examination without abnormal findings Category: Medical (2) Right elbow pain: Code(s): M25.521 - Pain in right elbow Category: Medical Plan The patient will have his cholesterol levels re-evaluated due to previous elevation noted last year. For the abnormal MRI of the prostate, a follow-up biopsy is required, and the patient will continue to be monitored by urology. Regarding the right elbow pain, an x-ray has been ordered, and the patient will be referred to orthopedics for further assessment and management. Patient was informed and verbally consented to the use of an ambient scribe for clinic note documentation during this visit. Orders: Orders Lipid Panel Today E78.5 - Hyperlipidemia, unspecified Comprehensive Lithia. Panel Fast Today E78.00 - Pure hypercholesterolemia, unspecified XR elbow RT 2V Today M25.521 - Pain in right elbow Referrals Orthopedics Referral M25.521 - Pain in right elbow
[2025-01-03 07:53] VITALS: BP 132/80; BMI 29.8
== END 2025-01-03 08:20 | disposition home or self-care (01) ==
LOC: HO.HMCH 07:48
PROVIDERS: PCP Internal Medicine; Visit Provider Internal Medicine
DX: Z00.00 Encounter for general adult medical examination without abnormal findings (principal); M25.521 Pain in right elbow

== ENCOUNTER → 2025-01-03 07:47 | Outpatient (BNVA) | payer BC, SELFPAY | PROVIDERS: PCP Internal Medicine; Visit Provider Internal Medicine | DX: Z00.00 Encounter for general adult medical examination without abnormal findings (principal); M25.521 Pain in right elbow; E78.00 Pure hypercholesterolemia, unspecified | CPT/HCPCS: 96127 ==

== ENCOUNTER 2025-02-11 13:57 | Day surgery (SDC) | payer BC, SELFPAY ==
[2025-02-07 14:19] VITALS: BMI 29.8
--- NOTE | 2025-02-08 12:43 | P.CONAN_ITS ---
Documented by User: Vanda Stern NP 02/08/25 12:44 HPI - Anesthesia Eval Consult details Narrative: 45yo M for Targeted Prostate Needle Biopsy PMFSH Active Problems Active Problems: All Active Problems Abnormal MRI (Acute) Right elbow pain (Acute) Right elbow pain (Acute) Right hand pain (Acute) Left hand pain (Acute) Enlarged prostate (Acute) Impaired glucose tolerance (Acute) Transaminitis (Acute) Elevated blood pressure reading without diagnosis of hypertension (Acute) Pure hypercholesterolemia (Acute) Prostatitis (Acute) Urinary frequency (Acute) Elevated PSA (Acute) Obese (Acute) Colon cancer screening (Acute) Annual physical exam (Acute) Past Medical History Medical History HLD (hyperlipidemia) Family History Family History Mother Diabetes Hypertension Arthritis Father Hypertension Diabetes Arthritis Pacemaker Additional heart attack (anterolateral wall) Family/Other Mental health disorder Substance use disorder Sister Tachycardia Family history of problems with anesthesia: No Surgical History Surgical History Hx of prostate biopsy H/O colonoscopy History of Problems with Anesthesia: No Social History Social History Housing: House Alcohol intake: former Patient Tobacco Use Status: Former Tobacco user Tobacco use type: Cigarette e-Cigarette/Vaping Use: Never Used Second Hand Smoke Exposure: No Use of substances other than those prescribed or required for medical reasons: No Are you DNR?: No Advance Directives: No Advance Directives Information Provided: Yes service: No Current occupational status: employed Current occupation: [employer] Current occupational exposures/hazards: No Cognitive needs: No Hearing needs: No Vision needs: Yes Meds Allergies Allergy/AdvReac Type Severity Reaction Status Date / Time aspirin Allergy Severe Anaphylaxis Verified 02/11/25 14:04 Sea food Allergy Severe swelling, Uncoded 02/11/25 14:06 sweating, trouble breathing Home Medications ?Medication ?Instructions ?Recorded ?Confirmed ?Last Taken ?Type No Known Home Meds 04/03/24 02/11/25 Un known History Exam Height,Weight and Vital Signs: Height 6 ft 2 in Weight 105.233 kg Assessment and Plan Assessment Anesthesia Assessment: Chart Reviewed Final Anesthetic Review Family History of Problems with Anesthesia: No History of Problems with Anesthesia: No Documented by User: Mayra Reno MD 02/11/25 15:33 [facility] Past Medical History Medical History HLD (hyperlipidemia) Family History Family History Mother Diabetes Hypertension Arthritis Father Hypertension Diabetes Arthritis Pacemaker Additional heart attack (anterolateral wall) Family/Other Mental health disorder Substance use disorder Sister Tachycardia Surgical History Surgical History Hx of prostate biopsy H/O colonoscopy Social History Social History Housing: House Alcohol intake: former Patient Tobacco Use Status: Former Tobacco user Tobacco use type: Cigarette e-Cigarette/Vaping Use: Never Used Second Hand Smoke Exposure: No Use of substances other than those prescribed or required for medical reasons: No Are you DNR?: No Advance Directives: No Advance Directives Information Provided: Yes service: No Current occupational status: employed Current occupation: [employer] Current occupational exposures/hazards: No Cognitive needs: No Hearing needs: No Vision needs: Yes Meds Allergies Allergy/AdvReac Type Severity Reaction Status Date / Time aspirin Allergy Severe Anaphylaxis Verified 02/11/25 14:04 Sea food Allergy Severe swelling, Uncoded 02/11/25 14:06 sweating, trouble breathing Home Medications ?Medication ?Instructions ?Recorded ?Confirmed ?Last Taken ?Type No Known Home Meds 04/03/24 02/11/25 Un known History Exam Airway Mallampati Class: II TM Dist: >3cm Neck ROM: Full Heart: rrr Lungs: cta Assessment and Plan Assessment Anesthesia Assessment: Anesthesia Plan Discussed Final Anesthetic Review NPO: Yes ASA Class: II Final Preanesthetic Review: No Changes in Pt Med Stat, Meds/Allgs Chart Reviewed, Consent Obtained/Reviewed and Anes Risks/Benef Reviewed Patient Risk: Low Procedure Risk: Low Anesthetic Plan Anesthetic Plan: GA Disposition: Standard PACU
[2025-02-11 14:07] VITALS: BMI 29.3
[2025-02-11 14:15] VITALS: BP 141/90; PULSE 44; RESP 15; TEMP 36.4; O2SAT 98
[2025-02-11] MEDS: Lactated Ringers 1,000 ML 100 ML IVCONT (14:23)
--- NOTE | 2025-02-11 15:17 | MHC.SHP ---
Pre-Procedural Eval Section A - 24 Hr Update-Section A only Date of Service: 02/11/25 The patient is an INPATIENT: No Changes since office visit: No Cold of Flu in the past 2 weeks, No New Medical Problems, No Changes in Medication and No Patient answered all questions The patient has been examined within 24 hours of the surgical procedure. The History & Physical has been completed within 30 days and I have reviewed it.: Yes Section B - Complete if H&P > 30 days Chief Complaint: Elevated prostate specific antigen [PSA] Details of Present Illness: 1.7cm right pirads 3 lesion on MRI with elevated PSA Relevant Social History: None Present Medications: see Short Stay Collaborative assessment Medical History: No relevant PMH History of Previous Operations: No relevant previous surgery Allergies: Allergies Allergy/AdvReac Type Severity Reaction Status Date / Time aspirin Allergy Severe Anaphylaxis Verified 02/11/25 14:04 Sea food Allergy Severe swelling, Uncoded 02/11/25 14:06 sweating, trouble breathing Review of Systems Sugical H&P ROS: Negative: Constitution, Cardiovascular, Respiratory, Neurological, Psychiatric, Hem-Onc, Allergic/Immunologic, Gastrointestinal, Genitourinary, Musculoskeletal, Integumentary, Endocrine and Eyes/Ears/Nose/Throat Exam Surgical H&P Exam: Normal: HEENT, Normal: Heart, Normal: Lungs, Normal: Extremities, Normal: Abdomen, Normal: Skin and Normal: Neurological Plan Diagnosis/Plan: Unchanged (Perineal MRI/ultrasound targeted prostate biopsy) I have reviewed the history and physical and performed a pertinent physical examination on my patient. No changes have occurred unless specified. Time Spent With Patient Time: Total time managing care of this patient today ____ minutes.
--- NOTE | 2025-02-11 16:29 | W.PM.OPN ---
Operative Note Operative Note Date of Service: 02/11/25 Narrative: Preoperative diagnosis: Elevated PSA Postoperative diagnosis: Elevated PSA Procedure: 1. transrectal ultrasound-guided pudendal nerve block 2. MRI-US fusion image conformation, registration and 3D model creation performed 3. transperineal ultrasound-guided prostate biopsy 15 core including targets Surgeon: Dr. Ramses Nazario Anesthetic: Sedation plus local Indications for procedure: Elevated PSA - MRI with suspicious PiRADs 3 lesion on right posterolateral aspect Procedure: After informed consent was verified, the patient was brought into the procedure area. Patient identity confirmed. Perioperative antibiotics confirmed. Safety pause time out performed. Anesthesia performed per protocol. Scrotum taped out of operative area. Iodine prep used. Perineal injection of local anesthetic. Digital guided prostate pudendal nerve block performed with 10 cc of 1% lidocaine. 5cc each side. Combination 10cc iodine with 50cc gel was mixed and placed in the rectum. Ultrasound probe was placed per rectum. Ultrasound probe stabilized on a prostate stepper with attached grid. [employer] software and hardware platform was used for US image acquisition, US 3D model creation and MRI-US fusion image overlay. Ultrasound placement was made with external grid calibration for height and prostate diameter in both the transverse and longitudinal planes. Prostate was aligned midline and reviewed for transverse and sagital positioning. The bottom of the prostate was aligned with the 1.0 horizontal positioning on the guidance grid. Grid A-C covering right prostate and c-F covering left prostate. Numbers 1.0-2.5 covering posterior prostate and 2.5-4.0 covering anterior prostate. Once grid calibration was confirmed prostate ultrasound data acquisition was performed with ultrasound sweeping in a transverse fashion. Images were acquired moving from prostate base to apex. This was performed in an even fashion with approx 0.5cm extra length at base and apex. The US images were then registered to create 3D model boundaries. [place] markers were applied to ultrasound images in transverse and longitudinal fashion. [place] and base were marked first followed by conformational boundaries. A three dimensional ultrasound model was created using [employer] software. The model was reviewed against acquired US images and alignment performed. The planned needle targeting, based on prior acquisition of MRI imaging, was overlaid on the ultrasound 3D images and targets confirmed through ultrasound review. Adjustments were then made between real time and projected model targeting locations. Based on pre-planning evaluation 15 targets had been identified. These included sampling of 1.2 cm right posterolateral lesion identified on MRI. Biopsies were performed moving from far left lateral inferior to far right lateral inferior. Non-target biopsies were distributed evenly between left and right prostate lobes. Biopsy needle location was confirmed in real time with longitudinal US prior to biopsy needle firing. Cognitive adjustments to preplanned positions were made as necessary to ensure samples were taken from planned prostate areas. He tolerated the procedure well, and upon completion was transferred to stable condition in the PACU. Printed instructions regarding antibiotic use and common side effects such as low-grade temperature, potential infection and bleeding were given Pathology: 15 core prostate biopsy CPT 55979 Modifier 22 for complexity of procedure execution (Perineal prostate biopsy) CPT code 96541: Transrectal ultrasound; this is a diagnostic test for evaluation of the prostate and surrounding structures, looking for abnormalities or suspicious areas worrisome for cancer CPT code 05920: Ultrasonic guidance for needle placement (eg, biopsy, aspiration, injection, localization device), imaging supervision and interpretation CPT 92030: 3D rendering with interpretation and reporting of computed tomography (CT), MRI, ultrasound, or other tomographic modality with image postprocessing under concurrent supervision; not requiring image postprocessing on an independent workstation
[2025-02-11 16:35] VITALS: BP 124/78; PULSE 76; RESP 16; TEMP 36.1; O2SAT 97
[2025-02-11 16:40] VITALS: BP 129/87; PULSE 52; RESP 16; O2SAT 95
[2025-02-11 16:45] VITALS: BP 127/86; PULSE 58; RESP 16; O2SAT 94
[2025-02-11 16:50] VITALS: BP 129/84; PULSE 49; RESP 16; O2SAT 94
[2025-02-11 17:03] VITALS: BP 132/82; PULSE 50; RESP 16; TEMP 36.1; O2SAT 96
== END 2025-02-11 17:04 | disposition home or self-care (01) ==
PROVIDERS: PCP Internal Medicine; Visit Provider Urology
PROC: (CPT 55700; principal; 2025-02-11 15:40)
DX: N40.0 Benign prostatic hyperplasia without lower urinary tract symptoms (principal); R97.20 Elevated prostate specific antigen [PSA]; R93.89 Abnormal findings on diagnostic imaging of other specified body structures; E78.5 Hyperlipidemia, unspecified; Z88.6 Allergy status to analgesic agent
CPT/HCPCS: 55706; 88305; J1100; J2003; J2405; J2704; J3010

== ENCOUNTER → 2025-02-11 13:57 | Outpatient (BNV) | payer BC, SELFPAY | PROVIDERS: PCP Internal Medicine; Visit Provider Urology | DX: R97.20 Elevated prostate specific antigen [PSA] (principal) | CPT/HCPCS: 55706; 76872; 76942 ==

== ENCOUNTER 2025-02-15 09:21 | Outpatient (REF) | payer BC, SELFPAY ==
[2025-02-15 10:59] LABS: Alanine Aminotransferase 46 U/L (0-40); Albumin Level 4.6 g/dL (3.5-5.0); Alkaline Phosphatase 94 U/L (39-117); Anion Gap 14 (12-20); Aspartate Amino Transferase 28 U/L (5-37); Blood Urea Nitrogen 15 mg/dL (9-16); Calcium 9.5 mg/dL (8.4-10.2); Carbon Dioxide 23 mmol/L (22-29); Chloride 107 mmol/L (96-108); Cholesterol 237 mg/dL (<200); Estimated Glomerular Filt Rate > 60; HDL Cholesterol 41 mg/dL (>40); Potassium 4.1 mmol/L (3.3-5.1); Sodium 140 mmol/L (135-145); Total Protein 7.3 g/dL (6.5-8.0); Triglycerides 311 mg/dL (<150)
== END 2025-02-15 09:22 | disposition home or self-care (01) ==
LOC: HO.10HDL 09:21
PROVIDERS: Visit Provider Internal Medicine
DX: E78.5 Hyperlipidemia, unspecified (principal); E78.00 Pure hypercholesterolemia, unspecified
CPT/HCPCS: 36415; 80053; 80061

== ENCOUNTER 2025-02-26 11:28 | Outpatient (AMB) | payer BC, SELFPAY ==
--- NOTE | 2025-02-26 11:29 | A.OFFVIS_ITS ---
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 No evidence of disease on biopsy. Recommend trial finasteride for 6 months and repeat PSA. Prescription provided 11/16/24--FU MR prostate results 11/09/24--Area of interest in the right posteromedial and posterolateral peripheral zone in the mid gland as described, which is indeterminate for clinically significant prostate carcinoma. If imaging guided biopsy is planned, sampling of this region is recommended. PI-RADS 3: Intermediate (the presence of clinically significant cancer is equivocal) Plan MRI guided prostate biopsy 09/14/24--44-year-old male presenting with elevated PSA levels. The current PSA is recorded at 9.31 ng/mL, showing a slight increase from previous levels. Prior biopsies showed no malignant cells. The patient denies any urinary symptoms, such as frequency, urgency, or dysuria. He has no known family history of prostate cancer, with both father and grandfather alive and undiagnosed with the condition. I discussed with the patient the increase in PSA levels, indicating it warrants further investigation even though prior biopsies showed no malignancy. I recommended conducting an MRI of the prostate to identify any specific lesions. Should lesions be detected, we may pursue a targeted biopsy under anesthesia to ensure accuracy. Results - Labs: 08/17/24--PSA level of 9.31 ng/mL 11/21/2023--Dustin is a 43-year-old male who is being evaluated due to elevated PSA. He was initially evaluated by the nurse practitioner on 09/27/2023. PSA 10/21/2023--7.35 ng/mL. He is status post prostate biopsy. I reviewed pathology results benign prostate tissue. The patient denies obstructive urinary symptoms . He states that since the prostate biopsy has had hesitancy at the end of the stream if this persists and want him to give us. Discussed that it is important to continue to monitor with PSA screening. 09/27/2023-- Dustin is a pleasant 43-year-old male patient of Dr. Jovan Hernández. He presents to the office today for a follow up. Of note, patient was seen approximately 1 year ago for an elevated PSA at which time recommendations were made for prostate biopsy. However, in discussion with the patient today he reports having lost his insurance and was unable to undergo prostate procedure. He reports he has since straightened out his insurance and would like to have prostate biopsy. When asked patient reports to be doing and feeling well. He denies any urinary issues or concerns at this time. He reports to be happy with his current voiding parameters. When asked he denies urinary urgency, urinary frequency, incontinence, nocturia, hematuria, dysuria, foul smelling urine, changes to urinary stream, flank pain, fever, and or chills. Unable to obtain urine for urinalysis today however, PVR 44ml's. When asked patient denies any known family history of prostate cancer. Discussed at length potential causes for elevated PSA. [place] offered however deferred. He otherwise offers no other issues or concerns at this time. In review of patient's chart PSAs are as follows. 09/23--9.6 11/23--8.1 10/21/2023--7.35 PFSH Medical History HLD (hyperlipidemia) Surgical History Hx of prostate biopsy H/O colonoscopy Family History Mother Diabetes Hypertension Arthritis Father Hypertension Diabetes Arthritis Pacemaker Additional heart attack (anterolateral wall) Family/Other Mental health disorder Substance use disorder Sister Tachycardia Social History Housing: House Alcohol intake: former Patient Tobacco Use Status: Former Tobacco user Tobacco use type: Cigarette e-Cigarette/Vaping Use: Never Used Second Hand Smoke Exposure: No service: No Current occupational status: employed Current occupation: [employer] Current occupational exposures/hazards: No Cognitive needs: No Hearing needs: No Vision needs: Yes Review of Systems Const All systems reviewed & are unremarkable except as noted in HPI and below Reports no additional complaints Resp Reports no additional complaints GI Reports no additional complaints Reports as per HPI Musc Reports no additional complaints Physical Exam Telemedicine evaluation Appropriate responses Regular breathing rate and rhythm HEENT Head: Yes normal to inspection Ears: hearing grossly normal bilaterally Eyes General: appearance normal, both eyes and all related structures Neck Neck: Yes normal visual inspection Chest Chest palpation & inspection: normal inspection of the chest Resp Effort & Inspection: normal respiratory effort and able to speak in complete sentences Telehealth Telehealth Telehealth Platform: [employer] Location of provider rendering services: practice address Location of patient: address on file Patient Identification confirmed using: Name, : Yes Telehealth method: video Patient verbally consented to treatment: Yes Patient verbally consented to billing insurance company: Yes Patient informed of any privacy concerns related to visit: Yes Minutes spent on Phone/Video with Pt.: 15 Assessment & Plan Assessment & Plan (1) Prostatitis: Code(s): N41.9 - Inflammatory disease of prostate, unspecified Category: Medical (2) Elevated PSA: Code(s): R97.20 - Elevated prostate specific antigen [PSA] Category: Medical Plan Finasteride, six-month follow-up PSA Orders: Orders PSA,Total (Free>4and<10) 6 Months R97.20 - Elevated prostate specific antigen [PSA] Medications: New finasteride 5 mg PO DAILY 90 tabs 1RF 90 days R97.20 - Elevated prostate specific antigen [PSA] Patient Instructions: This note is constructed using voice recognition software. While every effort has been made to ensure accuracy machine operations supervisor errors may have been included. Imaging studies, laboratory and physical exam results were discussed and reviewed in detail. No major barriers to patient understanding were identified. An opportunity to ask questions regarding the treatment plan was provided. All questions were answered. The patient expressed understanding and agreement with the above treatment plan. The patient is aware they should contact our office by phone for worsening of their current condition or the appearance of new urologic symptoms. Compliance is encouraged with any medications and followup testing that is ordered. It is a privilege to participate in the urologic care of your patient. If you have any questions or concerns regarding treatment for the above conditions, or other urologic issues, please do not hesitate to contact me. The office telephone contact is [phone]. Sincerely, Dr Ramses Nazario MD, [facility] - Urology Compassionate Specialist Care for the Genitourinary System Coding Level of Care Code Tele Est Pt Level 4 (93285) Diagnoses Prostatitis N41.9 Elevated PSA R97.20
--- OUTSIDE RECORDS SUMMARY | 2025-02-26 12:24 | XMS_ITS | Clinical Summary ---
Author Organization [facility] Address [address] [place] [address] Care Team Providers Care Material Spreader Name Role Phone Taqueria Luis MD Primary Care Provider [phone] Allergies Active Allergy Reactions Severity Noted Date Comments Aspirin SOB, Wheezing,Rash/Dermatitis 2017 Seafood SOB, Wheezing,Rash/Dermatitis,Swelling/Edema 09/27/2017 Medications Medication Sig Dispensed Refills Start Date End Date Status triamcinolone acetonide (KENALOG) 10 MG/ML injectionIndications: Pes anserine bursitis Inject 1 mL into the articular space once for 1 dose. 2 mL 0 09/30/2020 Active Active Problems Problem Noted Date Hepatitis 01/12/2019 Comins of toe 12/29/2017 Overview: Comments: right 4th lateral aspect Hyperlipidemia 10/03/2017 Left low back pain 09/27/2017 Tobacco use 09/27/2017 Family History Medical History Relation Name Comments Cholesterol Level Father Diabetes Father Cholesterol Level Mother Diabetes Mother Cancer of the Colon Uncle Age 60- father side Relation Name Status Comments Father Mother Uncle Alive Social History Tobacco Use Types Packs/Day Years Used Date Smoking Tobacco: Former Cigarettes 1 Q uit: 05/15/2018 Smokeless Tobacco: Former Quit: 05/15/2018 Alcohol Use Standard Drinks/Week Comments No 0 (1 standard drink = 0.6 oz pur e alcohol) Sex Assigned at Date Recorded Not on file Last Filed Vital Signs Vital Sign Reading Time Taken Comments Blood Pressure 132/74 09/30/2020 1:58 PM EDT Pulse 56 09/30/2020 1:58 PM EDT Temperature 36.8 C (98.2 F) 09/30/2020 1:58 PM EDT Respiratory Rate 12 05/14/2019 8:49 AM EST Oxygen Saturation 98% 01/12/2019 2:59 PM EDT Inhaled Oxygen Concentration - - Weight 102.2 kg (225 lb 6.4 oz) 09/30/2020 1:58 PM EDT Height 188 cm (6' 2 ) 09/30/2020 1:58 PM EDT Body Mass Index 28.94 09/30/2020 1:58 PM EDT Plan of Treatment Health Maintenance Due Date Last Done Comments Covid-19 Vaccine (#1) 1978 DTAP/TDAP/TD (1 - Tdap) 1997 BASELINE HEALTH EXAM 40-64 09/11/2020 09/11/2018 CHOLESTEROL SCREENING 09/14/2023 09/13/2018 BMI CHECK/ADVISE 07/04/2024 08/20/2020, , 08/08/2020, Additional history exists DEPRESSION SCREENING/FOLLOWUP 07/04/2024 SOCIAL NEEDS SCREENING 07/04/2024 INFLUENZA (#1) 2025 PNEUMOCOCCAL VACCINE FOR HIG H RISK PATIENTS (#1) 2043 Care Teams Material Spreader Relationship Specialty Start Date End Date Taqueria Luis MD PCP - General Internal Medicine 08/11/18
== END 2025-02-26 16:12 | disposition home or self-care (01) ==
LOC: HO.HUSH 11:28
PROVIDERS: PCP Internal Medicine; Visit Provider Urology
DX: N41.9 Inflammatory disease of prostate, unspecified (principal); R97.20 Elevated prostate specific antigen [PSA]
CPT/HCPCS: 99214

== ENCOUNTER 2025-03-11 15:13 | Inpatient (IN) | payer BC, SELFPAY ==
--- NOTE | ~2025-03-11 | CT_ITS ---
CLINICAL HISTORY: right lower abdominal pain CT abdomen and pelvis with contrast Comparison: None provided Findings: Mild dependent atelectasis at lung bases. There are a few subcentimeter hypodensities in the right liver, likely small cysts, too small to further characterize. Gallbladder and solid organs otherwise unremarkable. No urolithiasis. Inferior cecum is significantly thick-walled at the ileocecal valve. Mesenteric vessels patent. Thick-walled appendix up to 2 cm diameter. Periappendiceal fat stranding and surrounding prominent lymph nodes in the ileocolic distribution. Trace pelvic free fluid image 84:3. No inflammatory changes. Multilevel small Schmorl's nodes. IMPRESSION: Acute appendicitis without abscess. There is associated thickening/inflammation of the inferior cecum. This document has been electronically signed by: Belen Cruz MD on 03/11/2025 22:51:03
[2025-03-11 15:17] VITALS: BP 162/88; PULSE 60; RESP 18; TEMP 36.3; O2SAT 98; BMI 29.9
--- NOTE | 2025-03-11 15:18 | ED_ITS ---
HPI - General Adult General Chief complaint: Abdominal Pain Stated complaint: right side abd pain Time Seen by Provider: 03/11/25 20:05 Source: patient, RN notes reviewed and old records reviewed Mode of arrival: ambulatory Limitations: no limitations History of Present Illness ED Provider: Rosalind CASTELAN narrative: 45-year-old male who denies any past medical history presents for evaluation of lower abdominal pain. Patient reports his pain started yesterday pain His pain is worse in the right lower abdomen. He has no previous abdominal surgeries pain His pain is worse with movement. Denies any nausea vomiting or diarrhea. His pain is at worst 8/10. Related Data Previous Rx's ?Medication ?Instructions ?Recorded finasteride 5 mg tablet 5 mg PO DAILY 90 days #90 ta bs 02/26/25 Allergies Allergy/AdvReac Type Severity Reaction Status Date / Time aspirin Allergy Severe Anaphylaxis Verified 03/11/25 15:19 Sea food Allergy Severe swelling, Uncoded 03/11/25 15:19 sweating, trouble breathing Review of Systems 2 Constitutional: Constitutional: Denies chills, Denies fever(s) and Denies headache(s) ENT: Denies dizziness and Denies headache(s) Cardiovascular: Cardiovascular: Denies chest pain and Denies dyspnea on exertion Respiratory: Respiratory: Denies cough and Denies dyspnea on exertion Gastrointestinal: Gastrointestinal: Reports abdominal pain, Denies nausea and Denies vomiting Musculoskeletal: Musculoskeletal: Denies back pain Integumentary/Breasts: Skin/Breast: Denies rash Neurologic: Denies dizziness and Denies headache(s) Psychiatric: Psychiatric: Denies anxiety PMFSH Past Medical History Medical History HLD (hyperlipidemia) Surgical History Hx of prostate biopsy H/O colonoscopy Family History Family History Mother Diabetes Hypertension Arthritis Father Hypertension Diabetes Arthritis Pacemaker Additional heart attack (anterolateral wall) Family/Other Mental health disorder Substance use disorder Sister Tachycardia Social History Social History Housing: House Alcohol intake: former Patient Tobacco Use Status: Former Tobacco user Tobacco use type: Cigarette Smoked in Last 30 Days: No e-Cigarette/Vaping Use: Never Used Second Hand Smoke Exposure: No Use of substances other than those prescribed or required for medical reasons: No Advance Directives: No Advance Directives Information Provided: Yes Do you have a plan to hurt others: No Plan service: No Current occupational status: employed Current occupation: [employer] Current occupational exposures/hazards: No Cognitive needs: No Hearing needs: No Vision needs: Yes Physical Exam ED Vital Signs: Vital Signs - 24 hr 03/11/25 15:17 03/11/25 19:50 Temperature 97.4 F 97.8 F Pulse Rate 60 50 Respiratory Rate 18 18 Blood Pressure 162/88 H 135/87 Pulse Oximetry 98 100 Oxygen Delivery Method Room Air Room Air BMI result Body Mass Index 29.9 Const General: healthy appearing, comfortable, no acute distress, alert and awake Nutritional Appearance: well nourished Orientation/consciousness: patient oriented x3 HENMT Head: Yes normocephalic and Yes atraumatic Eyes Eyelids: Yes eyelids normal Conjunctivae: conjunctivae normal Sclerae: sclerae normal Corneas: corneas normal Pupils: Equal, round and reactive pupils present EOM: EOMs intact bilaterally Neck Neck: Yes full ROM Resp Effort & Inspection: normal respiratory effort, able to speak in complete sentences and not labored Cardio Rate: regular rate Rhythm: regular rhythm GI Inspection: No distended Palpation (GI): Soft to palpation, not firm, Tenderness to palpation present (GI) in the RLQ, Guarding due to palpation present (GI) in the RLQ and not rigid Auscultation: normoactive bowel sounds Skin General skin exam: no rashes or lesions noted and elasticity normal Neuro General: patient oriented x3 Cranial nerves: Yes Equal, round and reactive pupils present and Yes Bilaterally intact EOM present Cognition (Neuro): normal cognition Extrem Other: Moving all extremities well without any obvious deformities Course Course Course Narrative: Rapid medical examination performed in triage by Rajni Hackett PA-C. Patient is a 45 year old assigned male at presenting to the emergency department with RLQ abdominal pain. Detailed physical exam and review of systems are deferred to the video technician. Labs ordered. Patient placed back in the waiting room pending room availability and results. Medications Administered Discontinued Medications Generic Name Dose Route Start Last Admin Trade Name Freq PRN Reason Stop Dose Admin Iohexol 85 ml 03/11/25 21:41 03/11/25 21:43 Iohexol 350 Mg/Ml 100 Ml Infus..Btl IV 03/11/25 21:42 85 ml ONCE ONE Administration Medical Decision Making Medical Decision Making [facility] Narrative: 45-year-old male presents for evaluation of right lower abdominal pain. He is quite tender in the right lower quadrant with guarding. Concern for acute appendicitis versus umbilical hernia but I do not palpate a hernia on exam. We will get a CT scan of the abdomen better evaluate. Less likely obstructive uropathy, constipation Differential Diagnosis Differential Diagnoses: The differential diagnosis associated with the presentation includes Acute appendicitis Abdominal pain Inguinal hernia Obstructive uropathy Consult Healthcare Provider Management of the patient was discussed with: Turret Lathe Tender Dr. Diana, general surgery who will admit the patient Lab Data [facility] Lab Attestation statement: I reviewed the patient's lab results. No leukocytosis, there is a very mild anemia unclear significance. Normal platelet count. No electrolyte abnormalities warranting imaging. Renal function within normal limits 03/11/25 15:23 03/11/25 15:23 Labs: Lab Results 03/11/25 Range/Units 15:23 WBC 9.7 (4.8-10.8) X10*3/uL RBC 5.02 (4.60-5.80) X10*6/uL Hgb 13.4 L (14.0-18.0) g/dl Hct 39.7 L (42.0-52.0) % MCV 79.1 L (80.0-98.0) fL MCH 26.7 L (27.0-33.0) pg MCHC 33.8 (31.0-36.0) g/dl RDW 13.1 (11.0-16.0) % Plt Count 362 (160-400) X10*3/uL MPV 10.0 (9.4-12.4) fL Immature Gran % (Auto) 0.2 (0.0-0.4) % Neut % (Auto) 61.7 (45-73) % Lymph % (Auto) 27.8 (20-40) % [place] % (Auto) 7.0 (2-11) % Eos % (Auto) 2.6 (0-4) % Baso % (Auto) 0.7 (0-2) % Lymph # (Auto) 2.7 (1.2-4.9) X10*3/uL [place] # (Auto) 0.7 (0.1-1.2) X10*3/uL Eos # (Auto) 0.3 (0.0-0.4) X10*3/uL Baso # (Auto) 0.1 (0.0-0.2) X10*3/uL Abs Immat Gran (auto) 0.02 (0.00-0.03) X10*3/uL Absolute Neuts (auto) 6.0 (2.0-8.3) x10*3/uL Absolute Nucleated RBC 0.000 (0.0-0.012) X10*3/uL Nucleated RBC % (auto) 0.0 (0.0-0.2) /100WBC Sodium 142 (135-145) mmol/L Potassium 4.1 (3.3-5.1) mmol/L Chloride 111 H (96-108) mmol/L Carbon Dioxide 22 (22-29) mmol/L Anion Gap 13 (12-20) BUN 16 (9-16) mg/dL Creatinine 1.01 (0.5-1.4) mg/dL Estim Creat Clear Calc 117.0 Estimated GFR > 60 Random Glucose 100 (60-115) mg/dL Calcium 9.1 (8.4-10.2) mg/dL Total Bilirubin 0.4 (0.0-1.0) mg/dL AST 25 (5-37) U/L ALT 42 H (0-40) U/L Alkaline Phosphatase 114 (39-117) U/L Total Protein 7.2 (6.5-8.0) g/dL Albumin 4.4 (3.5-5.0) g/dL Independent Interpretation I performed an independent interpretation of an: CT Scan Interpretation: Agree with Radiology interpretation, acute appendicitis Radiology Impression Discussion of test interpretation with radiology: I have reviewed the radiologist's reading. Radiologist Impression: Findings: Mild dependent atelectasis at lung bases. There are a few subcentimeter hypodensities in the right liver, likely small cysts, too small to further characterize. Gallbladder and solid organs otherwise unremarkable. No urolithiasis. Inferior cecum is significantly thick-walled at the ileocecal valve. Mesenteric vessels patent. Thick-walled appendix up to 2 cm diameter. Periappendiceal fat stranding and surrounding prominent lymph nodes in the ileocolic distribution. Trace pelvic free fluid image 84:3. No inflammatory changes. Multilevel small Schmorl's nodes. IMPRESSION: Acute appendicitis without abscess. There is associated thickening/inflammation of the inferior cecum. This document has been electronically signed by: Belen Cruz MD on 03/11/2025 22:51:03 Discharge Plan Discharge Clinical Impression: Acute appendicitis Patient Disposition: Admitted As Inpatient Print Language: Icelandic
[2025-03-11 15:31] LABS: MANUAL DIFF FLAG NO
[2025-03-11 15:33] LABS: Hematocrit 39.7 % (42.0-52.0); Hemoglobin 13.4 g/dl (14.0-18.0); Imm Gran Abs Auto 0.02 X10*3/uL (0.00-0.03); Imm Gran Pct Auto 0.2 % (0.0-0.4); Lymphocytes Absolute Auto 2.7 X10*3/uL (1.2-4.9); Mean Corpuscular HGB Conc 33.8 g/dl (31.0-36.0); Mean Corpuscular Hemoglobin 26.7 pg (27.0-33.0); Mean Corpuscular Volume 79.1 fL (80.0-98.0); NRBC Abs Auto 0.000 X10*3/uL (0.0-0.012); NRBC Pct Auto 0.0 /100WBC (0.0-0.2); Platelet Count 362 X10*3/uL (160-400); Red Blood Count 5.02 X10*6/uL (4.60-5.80); White Blood Count 9.7 X10*3/uL (4.8-10.8)
[2025-03-11 15:48] LABS: Alanine Aminotransferase 42 U/L (0-40); Albumin Level 4.4 g/dL (3.5-5.0); Alkaline Phosphatase 114 U/L (39-117); Anion Gap 13 (12-20); Aspartate Amino Transferase 25 U/L (5-37); Blood Urea Nitrogen 16 mg/dL (9-16); Calcium 9.1 mg/dL (8.4-10.2); Carbon Dioxide 22 mmol/L (22-29); Chloride 111 mmol/L (96-108); Creatinine Clr Calc Pharmacy 117.0; Estimated Glomerular Filt Rate > 60; Potassium 4.1 mmol/L (3.3-5.1); Sodium 142 mmol/L (135-145); Total Protein 7.2 g/dL (6.5-8.0)
[2025-03-11 19:50] VITALS: BP 135/87; PULSE 50; RESP 18; TEMP 36.6; O2SAT 100
[2025-03-11] MEDS: iohexoL 350 MG/ML 100 ML INFUS..BTL 85 ML IV (21:43)
[2025-03-12] VITALS (17 sets, daily range): BP systolic 129–153; BP diastolic 26–93; PULSE 42–90; RESP 16–18; TEMP 36–36.6; O2SAT 96–100; BMI 30.3
[2025-03-12] MEDS: Lactated Ringers 1,000 ML 100 ML IVCONT ×3 (00:53→17:08)
--- NOTE | 2025-03-12 02:02 | PC.NURSE ---
Addendum entered by Sulaiman Gong 03/12/25 02:12: pt will b transported to room 3 by school janitor Original Note: report given to overflow RN
--- NOTE | 2025-03-12 02:02 | PC.NURSE ---
pt is A+Ox4, ambulated to bathroom independently, has been NPO since midnight, denies pain medication d/t no pain at rest. Visitor stated she will be waiting in ED waiting room until the morning when pt goes to OR.
[2025-03-12 03:29] LABS: Appearance Urine Clear; Glucose Urine UA Negative (Negative); PH 5.5 (5.0-9.0); Specific Gravity - Urine >= 1.030 (1.005-1.025)
--- NOTE | 2025-03-12 06:05 | P.HPGS_ITS ---
History of Present Illness History of Present Illness Date of Service: 03/12/25 <Cinthya Douglass PA-C - Last Filed: 03/12/25 07:44> 03/12/25 <Yash Diana MD - Last Filed: 03/12/25 13:46> Chief complaint: Appendicitis <Cinthya Douglass PA-C - Last Filed: 03/12/25 07:44> Narrative: Dustin Leonard is a 45 year old male with PMH of hyperlipidemia, prostatitis and elevated PSA who presented to the ED yesterday with complaints of lower abdominal pain. He developed the pain the day prior to presentation and it became severe in the RLQ. Due to the severity he presented to the ED for further evaluation. Work up in the ED included CBC, BMP, LFTs which were unrevealing. No leukocytosis. CT scan abd pelvis was performed which showed a thick-walled appendix with periappendiceal fat stranding. He denies fevers, chills, nausea, vomiting, diarrhea, similar episodes of pain, past abdominal surgical history. Last colonoscopy 04/16 which showed diverticulosis, tubular adenoma. <Cinthya Douglass PA-C - Last Filed: 03/12/25 07:44> Review of Systems Review of Systems: Yes all other systems are reviewed and are negative <Cinthya Douglass PA-C - Last Filed: 03/12/25 07:44> PMFSH Past Medical History Medical History: Medical History HLD (hyperlipidemia) <Cinthya Douglass PA-C - Last Filed: 03/12/25 07:44> Family History Family History: Family History Mother Diabetes Hypertension Arthritis Father Hypertension Diabetes Arthritis Pacemaker Additional heart attack (anterolateral wall) Family/Other Mental health disorder Substance use disorder Sister Tachycardia <MARCE Lombardi Last Filed: 03/12/25 07:44> Surgical History Surgical History: Surgical History Hx of prostate biopsy H/O colonoscopy <MARCE Lombardi Last Filed: 03/12/25 07:44> Social History Social History: Social History Housing: House Alcohol intake: former Patient Tobacco Use Status: Former Tobacco user Tobacco use type: Cigarette Smoked in Last 30 Days: No e-Cigarette/Vaping Use: Never Used Second Hand Smoke Exposure: No Use of substances other than those prescribed or required for medical reasons: No Have you been hit, kicked, punched, or otherwise hurt by someone within the past year? If so, by whom?: No Are you DNR?: No Advance Directives: No Advance Directives Information Provided: Yes Do you have a plan to hurt others: No Plan Nutrition Risks: No Nutritional Risk service: No Current occupational status: employed Current occupation: [employer] Current occupational exposures/hazards: No Cognitive needs: No Hearing needs: No Vision needs: Yes <MARCE Lombardi Last Filed: 03/12/25 07:44> Meds Allergies/Adverse reactions: Allergies Allergy/AdvReac Type Severity Reaction Status Date / Time aspirin Allergy Severe Anaphylaxis Verified 03/11/25 15:19 Sea food Allergy Severe swelling, Uncoded 03/11/25 15:19 sweating, trouble breathing <MARCE Lombardi Last Filed: 03/12/25 07:44> Active Medications: Current Medications Acetaminophen (Acetaminophen 325 Mg Tablet) 650 mg PO Q6H PRN PRN Reason: Pain, Mild 1-3,fever,headache Lactated Ringer's (Lr) 1,000 mls @ 100 mls/hr IVCONT .Q10H [facility] Last Admin: 03/12/25 00:53 Dose: 100 mls/hr Piperacillin Sod/Tazobactam (Sod 3.375 gm/ Sodium Chloride) 50 mls @ 100 mls/hr IV Q6H [facility] Last Infusion: 03/12/25 05:30 Dose: Infused Melatonin (Melatonin 3 Mg Tablet) 6 mg PO BEDTIME PRN PRN Reason: Insomnia Morphine Sulfate (Morphine Sulfate 4 Mg/Ml Cartridge) 3 mg IVPUSH Q4H PRN; Protocol PRN Reason: Pain, Severe (Pain Scale 7-10) Ondansetron HCl (Ondansetron Hcl 4 Mg/2 Ml Vial) 4 mg IVPUSH Q8H PRN PRN Reason: Nausea and Vomiting Sodium Chloride (0.9 % Sodium Chloride Flush 3 Ml Syringe) 3 ml IVFLUSH [facility] Last Admin: 03/12/25 00:00 Dose: 3 ml <MARCE Lombardi Last Filed: 03/12/25 07:44> Physical Exam Vital Signs: Vital Signs: Last Vital Signs Temp 96.9 F 03/12/25 05:38 Pulse 51 03/12/25 05:38 Resp 16 03/12/25 05:38 BP 129/26 L 03/12/25 05:38 Pulse Ox 97 03/12/25 05:38 O2 Del Method Room Air 03/12/25 05:38 BMI result Body Mass Index 29.9 <MARCE Lombardi Last Filed: 03/12/25 07:44> Const: General: comfortable, no acute distress and alert <MARCE Lombardi Last Filed: 03/12/25 07:44> Orientation/consciousness: patient oriented x3 <MARCE Lombardi Last Filed: 03/12/25 07:44> Resp: Effort & Inspection: normal respiratory effort <MARCE Lombardi Last Filed: 03/12/25 07:44> GI: Palpation (GI): Soft to palpation, Tenderness to palpation present (GI) in the RLQ (marked RLQ tenderness) and at McBurney's point; Rovsing's sign negative and no guarding <MARCE Lombardi Last Filed: 03/12/25 07:44> Skin: General skin exam: no rashes or lesions noted <MARCE Lombardi Last Filed: 03/12/25 07:44> Neuro: General: patient oriented x3 and moves all extremities <MARCE Lombardi Last Filed: 03/12/25 07:44> Results Results Labs: Short CBC 03/11/25 Range/Units 15:23 WBC 9.7 (4.8-10.8) X10*3/uL Hgb 13.4 L (14.0-18.0) g/dl Hct 39.7 L (42.0-52.0) % Plt Count 362 (160-400) X10*3/uL BMP 03/11/25 15:23 Sodium 142 Potassium 4.1 Chloride 111 H Carbon Dioxide 22 BUN 16 Creatinine 1.01 Calcium 9.1 Liver Function 03/11/25 Range/Units 15:23 Total Bilirubin 0.4 (0.0-1.0) mg/dL AST 25 (5-37) U/L ALT 42 H (0-40) U/L Alkaline Phosphatase 114 (39-117) U/L Albumin 4.4 (3.5-5.0) g/dL Urine 03/12/25 Range/Units 03:05 Urine Color Yellow Urine Appearance Clear Urine pH 5.5 (5.0-9.0) Ur Specific [place] >= 1.030 H (1.005-1.025) Urine Protein Negative (Neg-Trace) mg/dL Urine Glucose (UA) Negative (Negative) mg/dL <Cinthya Douglass PA-C - Last Filed: 03/12/25 07:44> Abdomen CT scan report/results: report reviewed and image reviewed (agree with official report ) <MARCE Lombardi Last Filed: 03/12/25 07:44> Additional studies: labs reviewed <MARCE Lombardi Last Filed: 03/12/25 07:44> Assessment and Plan (1) Acute appendicitis: Status: Acute <MARCE Lombardi Last Filed: 03/12/25 07:44> 45-year-old male with right lower quadrant pain and tenderness for about 2 days No fever, no vomiting or diarrhea Abdomen tender on the right lower quadrant I have reviewed his CAT scan images - he has significant inflammatory changes on his appendix with note of marked thickening consistent with acute appendicitis I therefore explained to him the option of proceeding with laparoscopic appendectomy with possible conversion to open I explained the risks including but not limited to bleeding, infections, injury to other organs including bowel and the urinary tract, staple line leak, pneumonia, blood clots, as well as the benefits and alternatives He understands the option of antibiotic treatment alone He says he wants to proceed with the appendectomy He is on the add on schedule for today for laparoscopic appendectomy and possible open I have seen and examined him independently <Yash Diana MD - Last Filed: 03/12/25 13:46> 45 year old male presenting with RLQ abd pain with marked RLQ tenderness found to have thickened appendix and periappendiceal fat stranding consistent with acute appendicitis. Risks, benefits, alternatives of laparoscopic possible open appendectomy were reviewed with the patient and included but not limited to bleeding, infection, numbness, pain, scarring, bowel or bladder injury or staple line leak and the patient wishes to proceed. He has been added onto the OR schedule for today. Cont NPO status, IVF, IV zosyn. Patient comfortable with plan. <Cinthya Douglass PA-C - Last Filed: 03/12/25 07:44> Quality Stroke Does the patient have a stroke diagnosis?: No <Cinthya Douglass PA-C - Last Filed: 03/12/25 07:44> VTE Prior VTE?: No <Cinthya Douglass PA-C - Last Filed: 03/12/25 07:44> VTE Risk Level:: Medical - moderate - high <Cinthya Douglass PA-C - Last Filed: 03/12/25 07:44> VTE Device Contraindication: N/A - Device Ordered <Cinthya Douglass PA-C - Last Filed: 03/12/25 07:44> VTE Drug Contraindication: N/A - Med Ordered <Cinthya Douglass PA-C - Last Filed: 03/12/25 07:44> Procedures Date of Service Date of Service: 03/12/25 <Cinthya Douglass PA-C - Last Filed: 03/12/25 07:44> 03/12/25 <Yash Diana MD - Last Filed: 03/12/25 13:46>
--- NOTE | 2025-03-12 08:00 | PHA.MEDREC ---
Addendum entered by Edwina Charles RPh 03/12/25 08:24: MED REC REVIEWED BY [facility] Original Note: Pharmacy Consult ? Medication Reconciliation Pharmacy has completed the medication reconciliation. Spoke with pt and he confirmed his medication.
--- NOTE | 2025-03-12 09:31 | PC.NURSE ---
Telephone report gv to Short Stay RN; pt aware of planned machine operator picker time for OR at 1100; IVF's infusing per orders; pt remains NPO
--- NOTE | 2025-03-12 09:33 | HO.ANESPROP2 ---
Documented by User: Nirmala Antoine NP 03/12/25 09:42 HPI - Anesthesia Eval Consult details Narrative: 45 yr old male for Appendectomy Laparoscopic No recent illness No CP/SOB with walking Triglycerides: >300 HR: 40s, asymptomatic PMFSH Active Problems Active Problems: All Active Problems (Updated 03/11/25 @ 23:03 by Abdoulaye Boyer) Acute appendicitis (Acute) Abnormal MRI (Acute) Right elbow pain (Acute) Right elbow pain (Acute) Right hand pain (Acute) Left hand pain (Acute) Enlarged prostate (Acute) Impaired glucose tolerance (Acute) Transaminitis (Acute) Elevated blood pressure reading without diagnosis of hypertension (Acute) Pure hypercholesterolemia (Acute) Prostatitis (Acute) Urinary frequency (Acute) Elevated PSA (Acute) Obese (Acute) Colon cancer screening (Acute) Annual physical exam (Acute) Past Medical History Medical History HLD (hyperlipidemia) Family History Family History Mother Diabetes Hypertension Arthritis Father Hypertension Diabetes Arthritis Pacemaker Additional heart attack (anterolateral wall) Family/Other Mental health disorder Substance use disorder Sister Tachycardia Family history of problems with anesthesia: No Surgical History Surgical History Hx of prostate biopsy H/O colonoscopy History of Problems with Anesthesia: No Social History Social History Housing: House Alcohol intake: former Patient Tobacco Use Status: Former Tobacco user Tobacco use type: Cigarette Smoked in Last 30 Days: No e-Cigarette/Vaping Use: Never Used Second Hand Smoke Exposure: No Use of substances other than those prescribed or required for medical reasons: No Have you been hit, kicked, punched, or otherwise hurt by someone within the past year? If so, by whom?: No Are you DNR?: No Advance Directives: No Advance Directives Information Provided: Yes Do you have a plan to hurt others: No Plan Nutrition Risks: No Nutritional Risk service: No Current occupational status: employed Current occupation: [employer] Current occupational exposures/hazards: No Cognitive needs: No Hearing needs: No Vision needs: Yes Meds Allergies Allergy/AdvReac Type Severity Reaction Status Date / Time aspirin Allergy Severe Anaphylaxis Verified 03/11/25 15:19 Sea food Allergy Severe swelling, Uncoded 03/11/25 15:19 sweating, trouble breathing Active Medications: Current Medications Acetaminophen (Acetaminophen 325 Mg Tablet) 650 mg PO Q6H PRN PRN Reason: Pain, Mild 1-3,fever,headache Lactated Ringer's (Lr) 1,000 mls @ 100 mls/hr IVCONT .Q10H [facility] Last Admin: 03/12/25 00:53 Dose: 100 mls/hr Piperacillin Sod/Tazobactam (Sod 3.375 gm/ Sodium Chloride) 50 mls @ 100 mls/hr IV Q6H [facility] Last Infusion: 03/12/25 05:30 Dose: Infused Melatonin (Melatonin 3 Mg Tablet) 6 mg PO BEDTIME PRN PRN Reason: Insomnia Morphine Sulfate (Morphine Sulfate 4 Mg/Ml Cartridge) 3 mg IVPUSH Q4H PRN; Protocol PRN Reason: Pain, Severe (Pain Scale 7-10) Ondansetron HCl (Ondansetron Hcl 4 Mg/2 Ml Vial) 4 mg IVPUSH Q8H PRN PRN Reason: Nausea and Vomiting Sodium Chloride (0.9 % Sodium Chloride Flush 3 Ml Syringe) 3 ml IVFLUSH QSHIFT [facility] Last Admin: 03/12/25 08:33 Dose: Not Given Exam Height,Weight and Vital Signs: Height 6 ft 2 in Weight 105.6 kg Last Vital Signs Temp 97.1 F 03/12/25 07:53 Pulse 45 L 03/12/25 07:53 Resp 16 03/12/25 07:53 BP 134/76 03/12/25 07:53 Pulse Ox 97 03/12/25 07:53 O2 Del Method Room Air 03/12/25 07:53 Pertinent Lab Results Pertinent Lab Results: Laboratory Tests 03/11/25 03/12/25 15:23 03:05 WBC 9.7 RBC 5.02 Hgb 13.4 L Hct 39.7 L MCV 79.1 L MCH 26.7 L MCHC 33.8 RDW 13.1 Plt Count 362 MPV 10.0 Immature Gran % (Auto) 0.2 Neut % (Auto) 61.7 Lymph % (Auto) 27.8 [place] % (Auto) 7.0 Eos % (Auto) 2.6 Baso % (Auto) 0.7 Lymph # (Auto) 2.7 [place] # (Auto) 0.7 Eos # (Auto) 0.3 Baso # (Auto) 0.1 Abs Immat Gran (auto) 0.02 Absolute Neuts (auto) 6.0 Absolute Nucleated RBC 0.000 Nucleated RBC % (auto) 0.0 Sodium 142 Potassium 4.1 Chloride 111 H Carbon Dioxide 22 Anion Gap 13 BUN 16 Creatinine 1.01 Estim Creat Clear Calc 117.0 Estimated GFR > 60 Random Glucose 100 Calcium 9.1 Total Bilirubin 0.4 AST 25 ALT 42 H Alkaline Phosphatase 114 Total Protein 7.2 Albumin 4.4 Urine Color Yellow Urine Appearance Clear Urine pH 5.5 Ur Specific [place] >= 1.030 H Urine Protein Negative Urine Glucose (UA) Negative Urine Ketones Negative Urine Blood Negative Urine Nitrite Negative Ur Leukocyte Esterase Negative Airway Mallampati Class: III TM Dist: >3cm Neck ROM: Full Loose/Missing/Broken Teeth: No Assessment and Plan Final Anesthetic Review Family History of Problems with Anesthesia: No History of Problems with Anesthesia: No Documented by User: Vanessa Millan MD 03/12/25 13:45 PMFSH Past Medical History Medical History HLD (hyperlipidemia) Family History Family History Mother Diabetes Hypertension Arthritis Father Hypertension Diabetes Arthritis Pacemaker Additional heart attack (anterolateral wall) Family/Other Mental health disorder Substance use disorder Sister Tachycardia Surgical History Surgical History Hx of prostate biopsy H/O colonoscopy Social History Social History Housing: House Alcohol intake: former Patient Tobacco Use Status: Former Tobacco user Tobacco use type: Cigarette Smoked in Last 30 Days: No e-Cigarette/Vaping Use: Never Used Second Hand Smoke Exposure: No Use of substances other than those prescribed or required for medical reasons: No Have you been hit, kicked, punched, or otherwise hurt by someone within the past year? If so, by whom?: No Are you DNR?: No Advance Directives: No Advance Directives Information Provided: Yes Do you have a plan to hurt others: No Plan Nutrition Risks: No Nutritional Risk service: No Current occupational status: employed Current occupation: [employer] Current occupational exposures/hazards: No Cognitive needs: No Hearing needs: No Vision needs: Yes Meds Allergies Allergy/AdvReac Type Severity Reaction Status Date / Time aspirin Allergy Severe Anaphylaxis Verified 03/11/25 15:19 Sea food Allergy Severe swelling, Uncoded 03/11/25 15:19 sweating, trouble breathing Exam Airway Mallampati Class: II Heart: rrr Lungs: cta Assessment and Plan Assessment Anesthesia Assessment: Anesthesia Plan Discussed and Chart Reviewed Final Anesthetic Review NPO: Yes ASA Class: II Final Preanesthetic Review: No Changes in Pt Med Stat, Meds/Allgs Chart Reviewed and Consent Obtained/Reviewed Patient Risk: Low Procedure Risk: Low Anesthetic Plan Anesthetic Plan: GA Disposition: Standard PACU
--- NOTE | 2025-03-12 11:26 | PC.NURSE ---
Pt's on-call IV ABX begun at this time; OR transport at bedside to bring pt to short stay; pt has all belongings with him at this time
--- NOTE | 2025-03-12 11:48 | PC.NURSE ---
Patient has two IVs. #18 gauge in right AC-patent, dressing clean dry intact, + blood return. #20 left AC- patent, dressing clean dry intact, + blood return.
--- NOTE | 2025-03-12 15:07 | P.OP_ITS ---
Operative Note Operative Note Date of Service: 03/12/25 Narrative: Preop diagnosis: Acute appendicitis Postop diagnosis: Acute appendicitis, with the very indurated markedly inflamed appendix throughout its entire length, thickened attached mesentery Procedure: Laparoscopic appendectomy Surgeon: Yash Diana MD purchasing assistant: MIMI Lockwood The patient is a 45-year-old male admitted for acute appendicitis overnight. He wanted to proceed with the appendectomy. He understood the technique of laparoscopic appendectomy as well with the risks, benefits, and alternatives. He was brought to the operating room. He was placed supine under general anesthesia via endotracheal tube. A De Oliveira catheter was inserted. The abdomen was prepped and draped in the usual sterile fashion. A surgical time-out was done. The patient was receiving scheduled IV antibiotics I made a short infraumbilical incision with a blade 15. This carried down through the full-thickness of the skin and thick subcutaneous fat down to the fascia. The fascia was incised. The peritoneum was entered. Through this incision a Diaz port was introduced. Pneumoperitoneum was introduced to a pressure of 15 mm Hg. From here on the procedure was done under laparoscopic visualization with the 10 mm 30 degree scope alternating with a 5 mm 30 degree scope With laparoscopic visualization I inserted a 5 mm port in the left lower quadrant as well as on the suprapubic margin through small stab incisions. The patient is placed in a steep head-down [id number] position. Graspers were placed through the working ports. The small bowel loops were reflected away from the right lower quadrant. The cecum was seen. By following this we are able to visualize a markedly thickened very inflamed appendix. This appeared to be diseased throughout the entire length although the inflammatory process was less at the base I was able to apply a grasper at the distal half of the appendix to put this on stretch. By doing so was able to gently create a mesenteric window along the base with the [place] dissector. I positioned an Endo-TAYLOR 45 mm purple stapler across the base of the appendix. This was fired and the appendix was transected completely With continued traction on the appendix anteriorly, I proceeded to then serially divide the mesoappendix using the LigaSure anterior the entire appendix was completely transected. The appendix was retrieved through an endobag through th e umbilical incision. I reinserted all ports and re-insufflated I examined all 4 quadrants. There was no evidence of any bowel injury or any other pathology. I pulled the omentum to overlie the cecum and the area of dissection Hemostasis was confirmed on the area of dissection. We then proceeded to desufflate through the port sites. The ports were removed with the laparoscopic visualization. The umbilical port was removed last The fascia of the umbilical incision was closed with a [id number] Polysorb 0 stitch. Skin closure was achieved with Polysorb 4-0 subcuticular running sutures. All incisions were infiltrated with a Marcaine 0.5% for postop analgesia. Dressings were applied and the procedure was completed The patient tolerated the procedure well. There were no immediate complications. Initial and final counts of sponges and instruments were correct. Estimated blood loss was less than 20 cc The patient is extubated without difficulty and transferred to the recovery room with stable vital signs.
--- NOTE | 2025-03-12 16:42 | PM.EVENT ---
Event Note Date of Service: 03/12/25 Event Note: Seen postop Underwent laparoscopic appendectomy earlier Has appropriate incisional pain Stable vital signs Abdomen is soft Diet ordered Pain management updated Hope to discharge tomorrow morning Time Spent With Patient Time: Total time managing care of this patient today ____ minutes.
[2025-03-12] MEDS: 0.9 % Sodium Chloride Flush 3 ML SYRINGE IVFLUSH ×2 (17:08)
[2025-03-13] MEDS: Lactated Ringers 1,000 ML 100 ML IVCONT (02:52)
[2025-03-13 03:11] VITALS: BP 150/84; PULSE 55; RESP 18; TEMP 36.4; O2SAT 97
[2025-03-13 07:25] VITALS: BP 140/80; PULSE 54; RESP 18; TEMP 36.1; O2SAT 96
--- NOTE | 2025-03-13 08:37 | P.PNGS_ITS ---
Subjective Subjective Date of Service: 03/13/25 Interval history: Says he feels ?great? had a good night Tolerating diet Good pain control Physical Exam 2 Vital Signs: Vital Signs: Last Vital Signs Temp 97.0 F 03/13/25 07:25 Pulse 54 03/13/25 07:25 Resp 18 03/13/25 07:25 BP 140/80 H 03/13/25 07:25 Pulse Ox 96 03/13/25 07:25 O2 Del Method Room Air 03/13/25 07:25 O2 Flow Rate 2 03/12/25 16:15 BMI result Body Mass Index 30.3 Const: General: comfortable and no acute distress Resp: Effort & Inspection: normal respiratory effort Cardio: Rate: regular rate GI: Other: Some tenderness incisions, appropriate to postop course Dressings in place, some staining Palpation (GI): Soft to palpation, not firm and no guarding Objective Data Active Medications Acetaminophen (Acetaminophen 325 Mg Tablet) 650 mg PO Q6H PRN PRN Reason: Pain, Mild 1-3,fever,headache Finasteride (Finasteride 5 Mg Tablet) 5 mg PO DAILY [facility] Last Admin: 03/13/25 07:50 Dose: 5 mg Documented By: ELIS Lactated Ringer's (Lr) 1,000 mls @ 100 mls/hr IVCONT .Q10H [facility] Last Admin: 03/13/25 02:52 Dose: 100 mls/hr Documented By: JOYA Melatonin (Melatonin 3 Mg Tablet) 6 mg PO BEDTIME PRN PRN Reason: Insomnia Morphine Sulfate (Morphine Sulfate 4 Mg/Ml Cartridge) 3 mg IVPUSH Q4H PRN; Protocol PRN Reason: Pain, Severe (Pain Scale 7-10) Naloxone HCl (Naloxone Hcl 0.4 Mg/Ml Vial) 0.04 mg IVPUSH Q5M PRN PRN Reason: Excessive sedation or RR < 8 Ondansetron HCl (Ondansetron Hcl 4 Mg/2 Ml Vial) 4 mg IVPUSH Q8H PRN PRN Reason: Nausea and Vomiting Oxycodone HCl (Oxycodone Hcl Immed Release 5 Mg Tablet) 5 mg PO Q4H PRN PRN Reason: Pain, Moderate(Pain Scale 4-6) Sodium Chloride (0.9 % Sodium Chloride Flush 3 Ml Syringe) 3 ml IVFLUSH QSHIFT [facility] Last Admin: 03/13/25 07:03 Dose: Not Given Documented By: ELIS Non-Admin Reason: IV Running Labs 03/11/25 15:23 03/11/25 15:23 Procedures Date of Service Date of Service: 03/13/25 Progress Note: A&P Assessment and plan (1) Acute appendicitis: Status: Acute Assessment and Plan: Status post laparoscopic appendectomy He clinically is doing very well Good oral intake Abdomen is soft and very benign Good vital signs He says he is ready to be discharged Instructions reinforced with the patient We will see in the office for postop visit at bedside Time Spent With Patient Time: Total time managing care of this patient today ____ minutes. Quality Stroke Does the patient have a stroke diagnosis?: No VTE Prior VTE?: No VTE Risk Level:: Medical - moderate - high VTE Device Contraindication: N/A - Device Ordered VTE Drug Contraindication: N/A - Med Ordered
--- NOTE | 2025-03-13 08:58 | P.DS_ITS ---
DS: Providers Provider Date of Service: 03/13/25 Date of admission: 03/11/25 23:04 Date of discharge: 03/13/25 Primary care physician: Roro Hernández MD Attending physician on admission: Yash Diana Attending physician on discharge: Yash Diana DS: Diagnosis Discharge Diagnosis (1) Acute appendicitis: Status: Acute DS: Summary Hospital Course Hospital Course: HPI AT ADMISSION: Dustin Leonard is a 45 year old male with PMH of hyperlipidemia, prostatitis and elevated PSA who presented to the ED yesterday with complaints of lower abdominal pain. He developed the pain the day prior to presentation and it became severe in the RLQ. Due to the severity he presented to the ED for further evaluation. Work up in the ED included CBC, BMP, LFTs which were unrevealing. No leukocytosis. CT scan abd pelvis was performed which showed a thick-walled appendix with periappendiceal fat stranding. He denies fevers, chills, nausea, vomiting, diarrhea, similar episodes of pain, past abdo ryan surgical history. Last colonoscopy 04/16 which showed diverticulosis, tubular adenoma. HOSPITAL COURSE: The patient was admitted to the surgical service for further treatment of the acute appendicitis. He elected to proceed with laparoscopic appendectomy. He was added onto the OR schedule for that day. On 03/12/25, a laparoscopic appendectomy was performed by Dr. Diana without complication. The patient tolerated the procedure well. He had an uncomplicated recovery course. On POD #1, he felt well and was tolerating a solid diet without nausea or vomiting, had good pain control and was ambulating without difficulty. He was hemodynamically stable. His abdomen was benign with appropriate post op tenderness and clean and intact dressings. He felt ready for discharge. He was discharged to home on 03/13/25 in stable condition. He is to follow up in the office in 2 weeks. Status at Discharge Functional status at discharge: independent ambulation Overall status at discharge: patient is progressing back to baseline Time Attestation Discharge Coordination Time (in mins): 25 Quality: Safe Use of Opioids Does Pt have an Active Cancer Diagnosis on the Problem List?: No Quality: Stroke Does the patient have a stroke diagnosis?: No Physical Exam Vital Signs: Vital Signs: Last Vital Signs Temp 97.0 F 03/13/25 07:25 Pulse 54 03/13/25 07:25 Resp 18 03/13/25 07:25 BP 140/80 H 03/13/25 07:25 Pulse Ox 96 03/13/25 07:25 O2 Del Method Room Air 03/13/25 07:25 O2 Flow Rate 2 03/12/25 16:15 BMI result Body Mass Index 30.3 Const: General: comfortable, no acute distress and alert Orientation/consciousness: patient oriented x3 Resp: Effort & Inspection: normal respiratory effort GI: Inspection: No distended and Yes incision (dressings clean and intact ) Palpation (GI): Soft to palpation, Tenderness to palpation present (GI) (mild incisional) and no guarding Skin: General skin exam: no rashes or lesions noted Neuro: General: patient oriented x3 and moves all extremities DS: Data Data Completed and Pending Pending studies at discharge: Pending at discharge 03/12/25 14:56 Surgical [PTH] Routine Discharge Plan Discharge Anticipated Discharge Date/Time: 03/13/25 08:57 Patient Disposition: Home, Self-Care Discharge Diagnosis: acute appendicitis, s/p laparoscopic appendectomy Referrals: Yash Diana MD [Physician, General Surgery] - 2 Weeks Roro Shea MD [Primary Care Provider, Internal Medicine] - 1 Week Discharge Medications: New docusate sodium [Colace] 100 mg capsule 100 mg PO BID PRN (Reason: constipation) Qty: 30 0RF oxycodone 5 mg tablet 5 mg PO Q4H PRN (Reason: pain (scale score 7-10)) Qty: 24 0RF Rx Instructions: Partial Fill upon patient request. Continued finasteride 5 mg tablet 5 mg PO DAILY 90 Days Qty: 90 1RF Discharge Orders: Discharge Order (Routine); Ordered 03/13/25 Ordered By: Cinthya Douglass Diet: Advance to usual diet Activity on Discharge: No heavy lifting Stand Alone Forms: Patient Portal Discharge page Print Language: Jordanian Activity Restrictions/Additional Instructions: If the incision area is tender, you may apply an ice pack for short intervals (No more than 20 minutes on, followed by at least 20 minutes off). Do not apply heat. Do not use creams, lotions, or topical antibiotics. These can cause infection or allergic reaction. Ok to shower 24 hours after your surgery. Remove bandaids in 2 days. You have steri strips (small white strips) covering your incision- these will fall off ~1 week. Follow up in office with Dr. Diana in 2 weeks. ([phone]) No heavy lifting (>10-20lbs) or strenuous activity! Call Your Doctor If: -Your temperature exceeds 101.5? F -You experience excessive pain or swelling -You have an unexpected reaction to medication -You have excessive bleeding -You experience continued vomiting/nausea -Your incision begins to separate -Your incision shows signs of infection such as increased redness, swelling, excessive pain, drainage (light blood or clear fluid is normal) or heat Care Plan Goals: Return to baseline health and resume normal activities following recovery period. Health Concerns: acute appendicitis Plan of Treatment: s/p laparoscopic appendectomy pain control follow up in the office in 1-2 weeks Assessment: Doing well post op.
--- NOTE | 2025-03-13 09:09 | HO.POSTANES ---
Post Anesthesia Evaluation Post Anesthesia Evaluation Date of Service: 03/13/25 Vital Signs: Vital Signs Temp Pulse Resp BP Pulse Ox O2 Del Method 03/13/25 07:25 97.0 F 54 18 140/80 H 96 Room Air 03/13/25 03:11 97.5 F 55 18 150/84 H 97 Room Air 03/12/25 23:24 97.5 F 59 18 138/84 96 Room Air Anesthesia: General Mental Status: Awake Pain Control: Satisfactory Nausea/Vomiting: None Hydration: Adequate Anesthesia-Related Issues: No Anes. Related Issues
[2025-03-13 09:20] VITALS: BP 152/79; PULSE 64; RESP 18; TEMP 36.5; O2SAT 98
--- NOTE | 2025-03-13 09:21 | MHC.CM.PN ---
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
--- NOTE | 2025-03-13 09:24 | MHC.CM.PN ---
pt dcd home self care
== END 2025-03-13 10:00 | disposition home or self-care (01) | DRG 234 ==
LOC: HO.ED 23:03 → HO.EDOVER 23:12 → HO.S3 03-12 15:44
PROVIDERS: Physician Assistant Medical; Admitting Provider Surgery; Emergency Provider Emergency Medicine Emergency Medical Services; PCP Internal Medicine; Visit Provider Surgery
PROC: 0DTJ4ZZ Resection of Appendix, Percutaneous Endoscopic Approach (ICD-10-PCS; CPT 44970; principal; 2025-03-12 12:40)
DX: K35.80 Unspecified acute appendicitis (principal); E78.5 Hyperlipidemia, unspecified; Z87.891 Personal history of nicotine dependence; Z79.899 Other long term (current) drug therapy
CPT/HCPCS: 44970; 36415; 74177; 80053; 81003; 85025; 88304; 99285; J0665; J1100; J1596; J2250; J2405; J2543; J3010; J7120; Q9967

== ENCOUNTER → 2025-03-11 20:57 | Outpatient (BNV) | payer BC, SELFPAY | PROVIDERS: Emergency Provider Emergency Medicine Emergency Medical Services; PCP Internal Medicine; Visit Provider Radiology Diagnostic Radiology | DX: K35.80 Unspecified acute appendicitis (principal) | CPT/HCPCS: 74177 ==

== ENCOUNTER → 2025-03-11 23:04 | Outpatient (BNV) | payer BC, SELFPAY | PROVIDERS: Admitting Provider Surgery; Emergency Provider Emergency Medicine Emergency Medical Services; PCP Internal Medicine; Visit Provider Physician Assistant Surgical | DX: K35.80 Unspecified acute appendicitis (principal) | CPT/HCPCS: 44970; 99024; 99222; 99499 ==

== ENCOUNTER 2025-03-15 08:10 | Outpatient (AMB) | payer BC, SELFPAY ==
--- NOTE | 2025-03-15 08:25 | MHC.PC.OV ---
Vital Signs 03/15/25 08:26 Height 6 ft 2 in Weight 230 lb 4 oz BMI 29.6 BP 130/78 Blood Pressure Location Lt brachial Position Sitting Pulse 55 Pulse Source Pulse Oximeter Temp 97.3 F Temp Source Temporal Artery Scan Pulse Oximetry (%) 97 Oxygen Delivery Method Room Air Intake Visit Reasons: [facility] TCM 03/11 appendicitis Intake Note: Patient is here for hospital discharge follow up. Patient was discharged from [facility] on 03/13/25. 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 He was admitted at [facility] on 03/11 - 03/13 for an evaluation and treatment of Lower abdominal pain. The patient was admitted to the surgical service for further treatment of the acute appendicitis. He elected to proceed with laparoscopic appendectomy. On 03/12/25, a laparoscopic appendectomy was performed by Dr. Diana without complication. Today patient reports Abdominal Bloating and some mild Pain. Reports good appetite and has been eating everything. Denies Nausea, vomiting, Constipation or diarrhea. He has an appointment with General Surgery 03/27/25. Reports low HR - but he does run low all the times - ranging from 40's - 50's Asymptomatic. 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 [facility] Medical History (Updated 03/11/25 @ 23:03 by Abdoulaye Boyer) HLD (hyperlipidemia) Surgical History (Updated 03/15/25 @ 08:45 by Barbara Hunter NP) S/P laparoscopic appendectomy History of appendectomy Hx of prostate biopsy H/O colonoscopy Family History Mother Diabetes Hypertension Arthritis Father Hypertension Diabetes Arthritis Pacemaker Additional heart attack (anterolateral wall) Family/Other Mental health disorder Substance use disorder Sister Tachycardia Social History Household Members: Significant Other Housing: House Do you presently have visiting nurse or other home services: No Alcohol intake: former Patient Tobacco Use Status: Former Tobacco user Tobacco use type: Cigarette e-Cigarette/Vaping Use: Never Used Second Hand Smoke Exposure: Yes service: No Current occupational status: employed Current occupation: [employer] Current occupational exposures/hazards: No Cognitive needs: No Hearing needs: No Vision needs: Yes Questionnaire Thrive Questionnaire Date Thrive assessed: 01/03/25 I am a: Patient What is your living situation today?: I have a steady place to live Within the past 12 months, did the food you bought not last and you didn't have the money to get more?: I choose not to answer this question Within the past 12 months, did you worry whether your food would run out before you got money to buy more?: Never true Do you have trouble paying for medicines?: No Do you have trouble getting transportation to medical appointments?: No Do you have trouble paying your heating and electricity bill?: No Do you have trouble taking care of your child, family member or friend?: No Do you have trouble with day-to-day activities such as bathing, preparing meals, shopping, managing finances, etc.?: No Are you currently unemployed and looking for a job?: No Are you interested in more education?: Yes Please select the resources that you would like help with: None Currently or been in a relationship where the following occur: No concerns reported THRIVE Score: 0 KAYLAN-7 AMB Questionnaire KAYLAN-7 Date KAYLAN - 7 assessed: 01/03/25 Source: Developed by Drs. Jaiden Brown, Fely Lovell, Doug Smith and colleagues, with an educational hugo from [employer]. Review of Systems Const All systems reviewed & are unremarkable except as noted in HPI and below Physical exam (Primary Care) Vital Signs: Last Vital Signs Temp 97.3 F 03/15/25 08:26 Pulse 55 03/15/25 08:26 BP 130/78 03/15/25 08:26 Pulse Ox 97 03/15/25 08:26 Oxygen Delivery Method Room Air 03/15/25 08:26 BMI result Body Mass Index 29.6 Tobacco/Smoking Status: Tobacco use Status Tobacco use date assessed 03/15/25 03/15/25 08:33 Patient Tobacco Use Status Former Tobacco user 03/15/25 08:33 Tobacco use type Cigarette 03/15/25 08:33 e-Cigarette/Vaping Use Never Used 03/15/25 08:33 Thrive Assessment: Date of Thrive Assessment Date Thrive assessed 01/03/25 03/15/25 08:33 Currently or been in a relationship where the following occur: No concerns reported Const General: no acute distress; No comfortable Nutritional Appearance: overweight Orientation/consciousness: patient oriented x3 Resp Effort & Inspection: normal respiratory effort Auscultation: clear to auscultation bilaterally Cardio Heart sounds: S1 normal heart sound present and S2 normal heart sound present GI Inspection: Yes distended Palpation (GI): Soft to palpation, not firm, Tenderness to palpation present (GI) (At the surgical wounds), no guarding, not rigid and No hepatosplenomegaly present Percussion: Yes normal to percussion Auscultation: Hyperactive bowel sounds present Rectal Exam - Male: Yes deferred Abdomen image:  1. 3 Small surgical port sites covered with Steris, Dry and mild TTP. No signs of infection. Neuro General: patient oriented x3 Coding Level of Care Code TCM Mod MDM <= 7 Days Diagnoses S/P laparoscopic appendectomy Z90.49 Time Spent (min) 20 Assessment & Plan Assessment & Plan (1) S/P laparoscopic appendectomy: Code(s): Z90.49 - Acquired absence of other specified parts of digestive tract Category: Surgical Plan: Stable. F/U with Surgery. No infection, mild pain. Advised to take Acetaminophen for pain relief Advised to take Tums PRN for Gas relief.
[2025-03-15 08:26] VITALS: BP 130/78; PULSE 55; TEMP 36.3; O2SAT 97; BMI 29.6
--- OUTSIDE RECORDS SUMMARY | 2025-03-15 08:28 | XMS_ITS | Encounter Summary ---
Author Organization [facility] Address [address] [place] [address] Care Team Providers Care Paper Control Clerk Name Role Phone Mati Mckenzie MD Primary Care Provider Ruby Pollard PA-C Primary Care Provider Taqueria Hilario MD Primary Care Provider [phone] Encounter Details Date Type Department Care Team Description 02/28/2018 Release of Information Medical Records [address] [place] [id number] Abstract, Provider Social History Tobacco Use Types Packs/Day Years Used Date Smoking Tobacco: Some Days Cigarettes 1 Smokeless Tobacco: Current Alcohol Use Standard Drinks/Week Comments No 0 (1 standard drink = 0.6 oz pur e alcohol) Sex Assigned at Date Recorded Not on file documented as of this encounter Plan of Treatment Not on file documented as of this encounter Visit Diagnoses Not on filedocumented in this encounter Care Teams Paper Control Clerk Relationship Specialty Start Date End Date Mati Mckenzie MD PCP - General Internal Medicine 01/11/18 05/27/18 Ruby Pantoja PA-C PCP - General Internal Medicine 05/28/18 08/10/18 Taqueria Luis MD PCP - General Internal Medicine 08/11/18 documented as of this encounter
== END 2025-03-15 09:56 | disposition home or self-care (01) ==
LOC: HO.HMCH 08:11
PROVIDERS: PCP Internal Medicine; Visit Provider Nurse Practitioner Family
DX: K35.80 Unspecified acute appendicitis (principal); Z90.49 Acquired absence of other specified parts of digestive tract

== ENCOUNTER 2025-03-15 08:10 | Outpatient (REF) | payer BC, SELFPAY ==
--- NOTE | ~2025-03-15 | XR_ITS ---
EXAMINATION: XR ELBOW 3 VIEWS RIGHT HISTORY: M25.521 - Pain in right elbow COMPARISON: There are no prior studies available for comparison. FINDINGS: Three views of the right elbow are submitted. Osseous mineralization is normal. There is no fracture or dislocation. The joint spaces are preserved. The soft tissues are unremarkable. There is no joint effusion. XR/XR elbow RT min 3V IMPRESSION: Unremarkable examination of the right elbow. Electronically signed by: Jaiden Emanuel MD 03/15/2025 01:36 PM EDT
== END 2025-03-15 08:11 | disposition home or self-care (01) ==
LOC: HO.HOSX 08:10
PROVIDERS: PCP Internal Medicine; Visit Provider Nurse Practitioner Family
DX: S42.441A Displaced fracture (avulsion) of medial epicondyle of right humerus, initial encounter for closed fracture (principal); M77.01 Medial epicondylitis, right elbow; Z90.49 Acquired absence of other specified parts of digestive tract
CPT/HCPCS: 73080; 99203

== ENCOUNTER 2025-03-15 13:16 | Outpatient (AMB) | payer BC, SELFPAY ==
[2025-03-15 13:30] VITALS: BMI 29.5
--- NOTE | 2025-03-15 13:30 | A.OFFVIS_ITS ---
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 Patient reports pain began last winter after taking a fall, landing on his elbows. Patient is concerned for a bony protrusion on the medial aspect of the right elbow. Patient states it is very tender to the touch. He is taking Tylenol PRN with some relief. Denies swelling, numbness, or tingling. Denies previous injuries or surgeries to the right upper extremity. 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 Patient reports pain began last winter after taking a fall, landing on his elbows. Patient is concerned for a bony protrusion on the medial aspect of the right elbow. Patient states it is very tender to the touch. He is taking Tylenol PRN with some relief. Denies swelling, numbness, or tingling. Denies previous injuries or surgeries to the right upper extremity. [facility] Medical History (Updated 03/15/25 @ 13:51 by MIMI Bunrett) HLD (hyperlipidemia) Surgical History (Updated 03/15/25 @ 08:45 by Barbara Hunter NP) S/P laparoscopic appendectomy History of appendectomy Hx of prostate biopsy H/O colonoscopy Family History Mother Diabetes Hypertension Arthritis Father Hypertension Diabetes Arthritis Pacemaker Additional heart attack (anterolateral wall) Family/Other Mental health disorder Substance use disorder Sister Tachycardia Social History Household Members: Significant Other Housing: House Do you presently have visiting nurse or other home services: No Alcohol intake: former Patient Tobacco Use Status: Former Tobacco user Tobacco use type: Cigarette e-Cigarette/Vaping Use: Never Used Second Hand Smoke Exposure: Yes service: No Current occupational status: employed Current occupation: [employer] Current occupational exposures/hazards: No Cognitive needs: No Hearing needs: No Vision needs: Yes Review of Systems Const All systems reviewed & are unremarkable except as noted in HPI and below Physical Exam Vital Signs: BMI result Body Mass Index 29.5 Extrem Other: Patient's right elbow does have a small area of prominence of the medial epicondyle to inspection No erythema, ecchymosis, edema noted No lacerations, abrasions, open areas No evidence of infection Patient reports significant tenderness to palpation of the area of protrusion on the medial epicondyle of the right elbow No tenderness to palpation of the lateral epicondyle, radial head, olecranon process, or elsewhere in the right elbow Range of motion of the right elbow full and intact No ligamentous laxity noted with testing of the medial collateral ligament of the right elbow Distal sensation intact Capillary refill brisk Results Reviewed Results Reviewed: X-rays obtained in the office today and independently reviewed by me, Kenney Ribeiro PA-C, demonstrate well ossified fracture fragment just adjacent to the medial epicondyle consistent with old avulsion fracture. Assessment & Plan Assessment & Plan (1) Medial epicondylitis of right elbow: Code(s): M77.01 - Medial epicondylitis, right elbow Category: Medical (2) Avulsion fracture of medial epicondyle of humerus: Code(s): S42.443A - Displaced fracture (avulsion) of medial epicondyle of unspecified humerus, initial encounter for closed fracture Category: Medical Plan 1. Avulsion fracture of medial epicondyle of right humerus Date of injury approximately July of 2024 Patient is educated about this condition Patient is educated about the typical recovery course At this time, patient is referred to occupational therapy for range of motion and strengthening of the right elbow in the setting of this fracture and likely resultant medial epicondylitis Patient is educated that there are no further surgical interventions or other invasive treatments indicated Patient understands this is amenable to this plan Patient is educated on conservative pain management measures, as well as padding the area to prevent bumping the elbow into things Patient understands this is amenable to this plan Follow-up as needed Orders: Orders XR elbow RT min 3V Today M25.521 - Pain in right elbow PT Evaluation and Treatment Today M77.01 - Medial epicondylitis, right elbow, S42.443A - Displaced fracture (avulsion) of medial epicondyle of unspecified humerus, initial encounter for closed fracture Coding Level of Care Code New Pt Level 3 (89774) Diagnoses Medial epicondylitis of right elbow M77.01 Avulsion fracture of medial epicondyle of humerus S42.443A
== END 2025-03-15 13:55 | disposition home or self-care (01) ==
LOC: HO.HOS 13:16
PROVIDERS: PCP Internal Medicine
DX: M77.01 Medial epicondylitis, right elbow (principal); S42.443A Displaced fracture (avulsion) of medial epicondyle of unspecified humerus, initial encounter for closed fracture
CPT/HCPCS: 99203

== ENCOUNTER → 2025-03-15 13:19 | Outpatient (BNV) | payer BC, SELFPAY | PROVIDERS: PCP Internal Medicine; Visit Provider Radiology Diagnostic Radiology | DX: M25.521 Pain in right elbow (principal) | CPT/HCPCS: 73080 ==

== ENCOUNTER 2025-03-27 10:03 | Outpatient (AMB) | payer BC, SELFPAY ==
--- NOTE | 2025-03-27 10:13 | MHC.OFFVIS ---
Vital Signs 03/27/25 10:20 Height 6 ft 2 in Weight 236 lb BMI 30.3 BP 140/76 H Blood Pressure Location Lt brachial Position Sitting Pulse 51 Intake Visit Reasons: s/p appy Intake Note: Patient here s/p Laparoscopic appendectomy. Patient c/o: reports incisions healing well. Denies pain, oozing. States insurance is not covering hospital stay. Patient advised to contact insurance. He may need to appeal. Surgery (FM): 03-20-2025 Pin Setter Required: No Accompanied by: Self / Same As Patient Allergies aspirin Allergy (Severe, Verified 03/27/25 10:19) Anaphylaxis Sea food Allergy (Severe, Uncoded 03/27/25 10:19) Anaphylaxis HPI HPI s/p appy: Details: Reports he is doing well. He is not experiencing any pain in the abdomen. His appetite and bowel function are at baseline. He has no concerns with his incision sites, denies drainage, any redness. He does state they are itchy but isn't too bothersome. He has been avoiding heavy lifting. 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 [facility] Medical History HLD (hyperlipidemia) Surgical History S/P laparoscopic appendectomy History of appendectomy Hx of prostate biopsy H/O colonoscopy Family History Mother Diabetes Hypertension Arthritis Father Hypertension Diabetes Arthritis Pacemaker Additional heart attack (anterolateral wall) Family/Other Mental health disorder Substance use disorder Sister Tachycardia Social History Household Members: Significant Other Housing: House Do you presently have visiting nurse or other home services: No Alcohol intake: former Patient Tobacco Use Status: Former Tobacco user Tobacco use type: Cigarette e-Cigarette/Vaping Use: Never Used Second Hand Smoke Exposure: Yes service: No Current occupational status: employed Current occupation: [employer] Current occupational exposures/hazards: No Cognitive needs: No Hearing needs: No Vision needs: Yes Physical Exam Vital Signs: Last Vital Signs Pulse 51 03/27/25 10:20 BP 140/76 H 09/24/25 10:20 BMI result Body Mass Index 30.3 Const General: comfortable and no acute distress Orientation/consciousness: patient oriented x3 Resp Effort & Inspection: normal respiratory effort and able to speak in complete sentences GI Other: Incision sites appear well healed, no surrounding erythema, no gross discharge. No palpable fluid collection. Nontender Inspection: No distended Palpation (GI): Soft to palpation and nontender Neuro General: patient oriented x3 Assessment & Plan Assessment & Plan (1) S/P laparoscopic appendectomy: Code(s): Z90.49 - Acquired absence of other specified parts of digestive tract Category: Surgical Plan Forty-seven multivessel SP laparoscopic appendectomy on 03/12/[address] Diana returning to the office for routine follow up. Patient reports he is doing well has no concerns at this time. Not experiencing pain in the abdomen, no incision site concerns. 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 Appetite and bowel function at baseline. On exam his abdomen is soft and benign, the incision sites appear well healed at this time there was some mild scabbing on the umbilical incision, he is experiencing some itching at the incision sites, I advised him to avoid putting creams on this for now as well as avoiding submerging the incisions for 2 more weeks. We will continue with the activity restrictions until April 11, at this point he can return to full activity. He has otherwise no longer requiring routine follow up. He can follow up as needed with any concerns in the future. Coding Level of Care Code Global (30157) Diagnoses S/P laparoscopic appendectomy Z90.49
[2025-03-27 10:20] VITALS: BP 140/76; PULSE 51; BMI 30.3
== END 2025-03-27 10:29 | disposition home or self-care (01) ==
LOC: HO.HGS 10:04
PROVIDERS: PCP Internal Medicine
DX: Z90.49 Acquired absence of other specified parts of digestive tract (principal)
CPT/HCPCS: 99024